=== PATIENT | male | born 1990 | race Caucasian/White ===

== ENCOUNTER 2019-07-28 14:44 | Emergency (ER) | payer MEDICAID, SELFPAY ==
[2019-07-28 14:45] VITALS: BP 151/92; PULSE 87; RESP 18; TEMP 36.6; O2SAT 99; BMI 32.0
--- NOTE | 2019-07-28 14:58 | ED.DCSUM_ITS ---
History of Present Illness Chief Complaint: Cold Sx Informant: Patient Onset: Days Context: Gradual Onset Timing: Intermittent Current Severity: Moderate Maximum Severity: Moderate Narrative: The patient presents to the emergency department cough and shortness of breath. Patient has a history of hereditary angioedema. He is also has a history of asthma. He states he has had worsening cough and some wheezing. He describes some low-grade fever. He states that he did take some antibiotics he had leftover and took steroids today. He is also been taking multiple o [id number] remedies with little improvement. He has been using his inhaler and it does seem to help his symptoms. He has not taken his temperature but felt like he is a low-grade fever. He denies any other systemic symptoms. Prior similar symptoms: No Recent Illness/Hospitalization: No Past Medical History - Allergies and Home Meds Allergies/Adverse Reactions: Allergies amoxicillin [From Augmentin] Allergy (Verified 07/28/19 14:47) Hives cefprozil [From Cefzil] Allergy (Verified 07/28/19 14:47) Hives clavulanic acid [From Augmentin] Allergy (Verified 07/28/19 14:47) Hives NSAIDS (Non-Steroidal Anti-Inflamma Adverse Reaction (Verified 07/28/19 14:47) Other THEY MAKE MY STOMACH SWELL Primary Care Physician: NOT,DEFINED [NON-STAFF] - Prior records reviewed: Yes Past Medical History: - Surgical History: no surgical history Smoking Status: Current every day smoker Review of Systems General: Denies: Chills, Fever, Sweats Eyes: Denies: Visual changes - bilaterally, Diplopia ENT: Denies: Rhinorrhea, Sore throat Cardiovascular: Denies: Chest pain, Palpitations Respiratory: Reports: Cough, Sputum. Denies: Dyspnea, Dyspnea on exertion Gastrointestinal: Denies: Abdominal pain, Nausea, Vomiting, Diarrhea, Melena, Hematochezia Genitourinary: Denies: Dysuria, Hematuria, Frequency Musculoskeletal: Denies: Back pain, Extremity Pain Skin: Denies: Rash, Wounds Neurological: Denies: Headache, Weakness, Numbness Physical Exam Vital Signs/Narrative: Vital Signs Temp Pulse Resp BP Pulse Ox 07/28/19 14:45 97.8 F 87 18 151/92 H 99 Inital Vital Signs reviewed: Yes General: Well nourished, Well developed, No Acute Distress Head: Normocephalic, Atraumatic Eyes: Perrl, EOMI ENT: Moist mucous membranes, No rhinorrhea Neck: Supple, Nontender Cardiovascular: Regular rate, Regular rhythm, No murmurs Respiratory: No distress, Chest nontender, Wheezing, Decreased Air Movement Abdomen: Soft, Nontender, Nondistended, Normal bowel sounds Back: Nontender, Normal Inspection Extremities: Nontender, No edema Skin: Normal color, No rash Neurological: Alert, Oriented x3, Cranial nerves II-XII grossly intact, Normal Strength, Normal Sensation Psychological: Normal affect, Normal Mood Diagnostic/Tx/Re-eval Chest X-Ray - ED: 2 View, Read by ED Physician, Read by Radiologist, Normal, Heart, Lungs, No Infiltrates - Medical Decision Making The patient presents with cough and shortness of breath. He does have wheezing in all [place]. He was given nebulized breathing treatments improvement. He had already taken prednisone. The x-ray shows no evidence of focal infiltrate. I am going to treat the patient for infectious bronchitis given his symptoms. He also be kept on prednisone. At this point, I do feel it is safe for outpatient therapy. The patient will be discharged home. Impression 1. Acute bronchitis ED Disposition - Plan for ED Patient: Instructions: BRONCHITIS, Antiobiotic Treatment (Adult) Prescriptions: Prednisone [Deltasone] 60 mg PO DAILY #15 tab Prescription Printed Famotidine [Pepcid] 20 mg PO BID #28 tab Prescription Printed Azithromycin [Zithromax Z-Moises] 250 mg PO UD #1 box Prescription Printed Referrals: NOT,DEFINED [NON-STAFF] -
--- NOTE | 2019-07-28 15:00 | RAD_ITS ---
STUDY: X-RAY CHEST REASON FOR EXAM: Male, 29 years old. Cough and shortness of breath. Sore throat. TECHNIQUE: PA and lateral views of the chest. COMPARISON: None. FINDINGS: The lungs are clear and expanded. Scattered calcified granulomas. There is no demonstrated pleural abnormality. Normal size heart. Normal mediastinum and zi. Normal visualized pulmonary arteries. Normal visualized aortic arch and descending thoracic aorta. Normal visualized thoracic spine. Normal visualized ribs, clavicles, and shoulders. There is no demonstrated abnormality of the visualized soft tissue structures of the upper abdomen. RAD/Chest PA and Lateral IMPRESSION: Normal x-ray examination of the chest. Electronically Signed: Melquiades Vega, at 15:21 EDT , Service support ,
[2019-07-28] MEDS: Ipratropium/Albuterol Sulfate 3 ML AMPUL.NEB INHALATION (15:07)
[2019-07-28] MEDS: Albuterol 2.5 MG/3 ML VIAL.NEB. INHALATION ×3 (15:08→15:20)
[2019-07-28 15:10] VITALS: PULSE 72; RESP 20
== END 2019-07-28 15:49 | disposition home or self-care (01) ==
LOC: ED 15:14
PROVIDERS: Emergency Provider Emergency Medicine
DX: J20.9 Acute bronchitis, unspecified (principal); J45.909 Unspecified asthma, uncomplicated; F17.200 Nicotine dependence, unspecified, uncomplicated; Z79.899 Other long term (current) drug therapy; Z88.0 Allergy status to penicillin; Z88.6 Allergy status to analgesic agent
CPT/HCPCS: 71046; 94640; 99282

== ENCOUNTER 2021-03-14 13:21 | Outpatient (RCR) | payer MEDICAID, SELFPAY | END 2021-04-30 23:59 | LOC: IMMUN 13:21 | PROVIDERS: Referring Provider Family Medicine; Visit Provider Family Medicine | DX: Z23 Encounter for immunization (principal) | CPT/HCPCS: 0001A; 0002A; 91300 ==

== ENCOUNTER 2021-03-24 05:42 | Emergency (ER) | payer MEDICAID, SELFPAY ==
[2021-03-24 05:43] VITALS: BP 132/90; PULSE 80; RESP 16; TEMP 36.1; O2SAT 100; BMI 28.3
--- NOTE | 2021-03-24 05:54 | EDS_ITS ---
HPI HPI - GI History of Present Illness Chief Complaint: Abd Pain Informant: patient Abdominal Pain/Flank Pain Onset: Yesterday and Hours Context: Gradual Onset Timing: Continuous Quality: Burning and Sharp Location: Epigastric Current Severity: Mild Maximum Severity: Moderate Worsened by: Nothing Nausea/Vomiting/Emesis GI Symptom: Positive for Nausea and Vomiting Onset: Today and Yesterday Quality: Positive for Nonbilious; Negative for Blood streaks, Coffee ground and Hematemesis Severity: Mild Diarrhea/Melena/Hematochezia GI Symptom: Negative for Diarrhea, Melena and Hematochezia Associated Symptoms Associated Symptoms: Negative for Dysuria and Frequency Narrative Narrative: 31-year-old male history of anxiety,, familial angioedema, hypertension, ADHD and as a child he states he did have peptic ulcer disease diagnosed with upper endoscopy. Patient states that 9 PM Thursday night he started having epigastric abdominal pain that about 20 minutes later started having nausea vomiting. No hematemesis. No melena. No diarrhea. No fever. No recent weight loss. No abdominal trauma. He is never had any abdominal surgeries. Prior similar symptoms: No Recent Illness/Hospitalization: No PFSH PFSH Medical History ADHD Angio-edema Anxiety HTN (hypertension) Stomach ulcer Home Medications alprazolam 1 mg PO BID PRN PRN 07/28/19 [History Last Taken Unknown] dextroamphetamine-amphetamine 20 mg PO DAILY 07/28/19 [History Last Taken Unknown] famotidine 20 mg PO BID #28 tab 07/28/19 [Rx Last Taken Unknown] prednisone 60 mg PO DAILY #15 tab 07/28/19 [Rx Last Taken Unknown] pantoprazole [Protonix] 40 mg PO DAILY #30 tab 03/24/21 [Rx Last Taken Unknown] Allergy/AdvReac Type Severity Reaction Status Date / Time amoxicillin [From Augmentin] Allergy Hives Verified 03/24/21 05:48 cefprozil [From Cefzil] Allergy Hives Verified 03/24/21 05:48 clavulanic acid Allergy Hives Verified 03/24/21 05:48 [From Augmentin] NSAIDS (Non-Steroidal AdvReac Other Verified 03/24/21 05:48 Anti-Inflamma Social History Smoking Status: Current every day smoker ROS ROS ED ROS Narrative States he is recently been well until onset of his symptoms at 9 PM last night. Review of Systems ROS Unobtainable: Denies due to encephalopathy Constitutional Constitutional ED: Denies fever(s) ENT ENT ED: Denies sore throat Cardiovascular Cardiovascular: Denies chest pain Respiratory/Chest Respiratory/Chest: Denies cough or dyspnea Gastrointestinal Gastrointestinal: Reports abdominal pain, nausea and vomiting; Denies cons tipation, diarrhea or melena Genitourinary Genitourinary ED: Denies dysuria, hematuria or urinary frequency Musculoskeletal Musculoskeletal: Denies myalgias Integumentary Denies rash Neurologic Neurologic: Denies headache(s) Psychiatric Psychiatric: Denies depression Endocrine Endocrinology: Denies polyuria Hematologic/Lymphatic Hematologic/Lymphatic: Denies easy bruising Allergic/Immunologic Allergic/Immunologic ED: Denies urticaria EXAM Physical Exam Narrative Exam Narrative: Young male complaining epigastric pain. Vital signs are stable and he is afebrile. He does not look septic or toxic. He does not look severely dehydrated. He is anxious. HEENT exam mildly dry. Otherwise unremarkable. Neck nontender. Lungs are clear equal symmetrical bilaterally. Heart regular rhythm no murmur. Rate about 80. Abdomen soft. Nondistended. Normal bowel sounds. No peritoneal signs. He is mildly tender in epigastric region. Both the right upper and right lower quadrants are completely nontender. There is no signs of obstruction. No obvious mass or hernia. Patient moving all 4 extremities. Skin unremarkable. No edema. Neurologically is awake alert with no focal motor deficits. Const Vital Signs: 03/24/21 05:43 Temperature 97.0 F L Temperature Source Temporal Pulse Rate 80 Respiratory Rate 16 Blood Pressure 132/90 H Blood Pressure Mean 104 Pulse Ox 100 Oxygen Delivery Method Room Air Positive well developed General Appearance ED: well developed HEENT Reports dry mucous membranes normocephalic and atraumatic Mouth ED: Yes dry mucous membranes Mouth: dry mucous membranes Eyes PERRL and EOMs intact bilaterally Neck no lymphadenopathy, supple and no JVD Resp normal respiratory effort and clear to auscultation bilaterally Cardio regular rate, regular rhythm and no murmurs GI non-distended and no masses Inspection: Negative for abdominal distention Auscultation: normoactive bowel sounds; Negative for hyperactive bowel sounds or hypoactive bowel sounds Palpation: soft and tender; Negative for hepatomegaly, splenomegaly, mass, pulsatile mass or rebound tenderness present Back/Spine no CVA tenderness Extremity full ROM General Extremety ED: Negative for edema or tenderness General Extremity: Negative for edema Neuro moves all extremities Sensorium / Orientation: alert, oriented to person, oriented to place and oriented to time Psych Mood & Affect: anxious Skin Rashes: no rashes MDM MDM MDM Narrative Medical decision making narrative: 31-year-old male with nausea vomiting and epigastric abdominal pain beginning around 9 PM last night. He will be treated with IV morphine for pain, IV Zofran for nausea and IV fluids for dehydration. Screening labs are being obtained. Differential would include viral syndrome, gastritis, ulcer, pancreatitis, gallbladder disease versus other etiologies. Lab Data Attestation: I reviewed the patient's lab results. Labs: Laboratory Results - last 24 hr 03/24/21 03/24/21 05:45 05:45 WBC 19.4 H RBC 5.47 Hgb 16.4 Hct 48.3 MCV 88.3 MCH 30.0 MCHC 34.0 RDW Std Deviation 40.5 RDW Coeff of Faustina 12.2 Plt Count 577 H MPV 9.7 Immature Gran % (Auto) 0.600 Neut % (Auto) 84.8 H Lymph % (Auto) 9.2 L [place] % (Auto) 4.8 Eos % (Auto) 0.3 Baso % (Auto) 0.3 Absolute Neuts (auto) 16.4 H Absolute Lymphs (auto) 1.79 Nucleated RBC % 0 Sodium 135 L Potassium 4.1 Chloride 101 Carbon Dioxide 28.0 Anion Gap 6 BUN 14 Creatinine 0.90 Estim Creat Clear Calc 151.25 Est GFR (MDRD) Af Amer 128 Est GFR (MDRD) Non-Af 105 BUN/Creatinine Ratio 15.6 Glucose 123 H Calcium 10.0 Total Bilirubin 0.70 AST 27 ALT 55 Alkaline Phosphatase 131 H Total Protein 8.3 H Albumin 4.3 Globulin 4.0 Albumin/Globulin Ratio 1.1 Lipase 58 L CBC shows elevated white count at 19.4. Normal hemoglobin is 16. No bands. Electrolytes unremarkable. Normal creatinine and gap. Liver enzymes are unremarkable. Lipase is 58. Due to the elevated white count a CAT scan of the abdomen pelvis with IV contrast has been ordered. Awaiting patient's CAT scan formal read. Patient is being treated with a second dose of IV morphine, Zofran and p.o. Protonix, He is improving at this time. Patient's CAT scan was read by the radiologist and is consistent with severe gastritis and duodenitis. Patient will receive additional medications and be discharged to home as long as doing well. Radiography Diagnostic Testing: Radiology Impression Abdomen/Pelvis CT 03/24/21 06:16 IMPRESSION: Severe gastritis and duodenitis. Electronically Signed: Maciel Plata MD at 7:33 EDT Tel , Service support , Discharge Plan Triage Chief Complaint: Abd Pain ED Provider: Jd Patrick Dx/Rx/DC Orders Clinical Impression: Gastritis and duodenitis Instructions: ED Gastritis (Adult) Prescriptions: New pantoprazole [Protonix] 40 mg tablet,delayed release (DR/EC) 40 mg PO DAILY Qty: 30 RF: 0 No Action alprazolam 1 MG tablet 1 mg PO BID PRN PRN (Reason: Anxiety) RF: 0 dextroamphetamine-amphetamine 20 MG capsule,extended release 24hr 20 mg PO DAILY RF: 0 prednisone 20 MG tablet 60 mg PO DAILY Qty: 15 RF: 0 famotidine 20 MG tablet 20 mg PO BID Qty: 28 RF: 0 Primary Care Provider: Care Physician,No Primary Referrals: Jonathon Gupta MD [STAFF PHYSICIAN] - 1 Week Care Physician,No Primary [Primary Care Provider] - Activity Restrictions/Additional Instructions: Protonix daily. I would start with 2 pills once a day and then as you are improving only 1 pill a day. Avoid alcohol because it will irritate your stomach. [place] diet and increase slowly. Zofran as needed for nausea. Follow-up with a local physician to ensure you are improving. Return emergency department if increasing pain, fever, vomiting blood or black or bloody stool. Disposition Disposition: Home, self care
[2021-03-24] MEDS: 0.9% Normal Saline 1,000 ML 1000 ML IV (05:57)
[2021-03-24] MEDS: Ondansetron 4 MG/2 ML Vial IV ×2 (05:58→07:37)
[2021-03-24] MEDS: morphine 8 MG/ML Syringe IV (05:59)
[2021-03-24 06:06] LABS: Absolute Lymphocyte Count 1.79 X10^3/uL (0.83-4.51); Absolute Neutrophil Count 16.4 X10^3/uL (2.0-7.7); Basophil# 0.05 X10^3/uL; Basophil% 0.3 % (0-1); Eosinophil# 0.05 X10^3/uL; Eosinophils% 0.3 % (0-5); Hematocrit 48.3 % (40-54); Hemoglobin 16.4 g/dL (13.0-16.5); Lymphocyte # 1.79 X10^3/ul (0.83-4.51); Lymphocyte % 9.2 % (19-41); Mean Corpuscular Volume 88.3 fL (80-94); Mean Platelet Vol. 9.7 fl (6.2-12.0); Monocyte# 0.92 X10^3/uL; Monocyte% 4.8 % (0-10); NRBC Flagged by Analyzer 0 % (0-5); Neutrophil # 16.44 X10^3/uL (2.7-7.7); Neutrophil % 84.8 % (47-70); Platelet Count 577 K/mm3 (150-450); RBC Distribution Width CV 12.2 % (11.6-14.6); RBC Distribution Width SD 40.5 fl (35.1-43.9); Red Blood Count 5.47 M/mm3 (4.6-6.2); White Blood Count 19.4 K/mm3 (4.4-11.0)
--- NOTE | 2021-03-24 06:16 | CT_ITS ---
STUDY: CT ABDOMEN AND PELVIS WITH CONTRAST REASON FOR EXAM: Male, 31 years old. epigastric abd pain RADIATION DOSAGE (If Supplied By Facility): CTDIvol = ( 17.60 ) mGy, DLP = ( 1243.55 ) mGycm TECHNIQUE: Transaxial images were obtained from the dome of the diaphragm to the symphysis pubis without oral contrast. IV 100mL Isovue-370 was administered. Sagittal and coronal images were reconstructed. Individualized dose optimization techniques were used for this CT. COMPARISON: None. FINDINGS: The visualized lung bases are unremarkable. The visualized portions of the heart are within normal limits. Normal liver. Normal gallbladder and extrahepatic biliary system. Normal spleen. Normal pancreas. Normal bilateral adrenal glands. Normal right kidney. Normal left kidney. Extensive wall thickening with surrounding fat stranding and fluid of the antrum of the stomach and the entire duodenum consistent with gastritis and duodenitis. Fluid extends laterally into the right anterior pararenal space and there is a small amount of free fluid in the pelvis. No loculated fluid collection to suggest abscess. No pneumoperitoneum to suggest perforation. Normal small intestine. Normal colon. The appendix is visualized and appears normal. Normal abdominal aorta. Normal inferior vena cava. Normal retroperitoneum. Normal urinary bladder. Normal abdominal wall. Normal osseous structures. CT/Abdomen/Pelvis W IV Cont ONLY IMPRESSION: Severe gastritis and duodenitis. Electronically Signed: Maciel Plata MD at 7:33 EDT Tel , Service support ,
[2021-03-24 06:19] LABS: ALB/GLOB Ratio 1.1 RATIO (0.9-2.4); AST(SGOT) 27 U/L (15-37); Alanine Aminotransfer ALT/SGPT 55 U/L (16-61); Albumin, Serum 4.3 g/dL (3.2-5.0); Alkaline Phosphatase 131 U/L (45-117); Anion Gap 6 (5-15); BUN 14 mg/dL (7-18); BUN/Creat Ratio 15.6 RATIO (10-20); Chloride 101 mmol/L (98-107); EST Glomerular Filtration Rate 105 mL/min (>60); Est Glom Filt Rate - Afr Amer 128 mL/min (>60); Estimated Creatinine Clearance 151.25 ml/min; Glucose 123 mg/dL (74-106); Lipase 58 U/L (73-393); Potassium 4.1 mmol/L (3.5-5.1); Protein, Total 8.3 g/dL (6.4-8.2); Sodium Level 135 mmol/L (136-145)
[2021-03-24] MEDS: morphine 8 MG/ML Syringe 6 MG IV (07:37)
[2021-03-24] MEDS: Pantoprazole Sodium 40 MG Tablet PO (07:38)
[2021-03-24 07:41] VITALS: BP 129/86; PULSE 77; RESP 16; O2SAT 99
== END 2021-03-24 08:29 | disposition home or self-care (01) ==
PROVIDERS: Emergency Provider Emergency Medicine
DX: K29.70 Gastritis, unspecified, without bleeding (principal); K29.80 Duodenitis without bleeding; I10 Essential (primary) hypertension; F17.200 Nicotine dependence, unspecified, uncomplicated; Z79.899 Other long term (current) drug therapy
CPT/HCPCS: 74177; 80053; 83690; 85025; 96361; 96374; 96375; 96376; 99284; J7030; Q9967; A4216; J2405

== ENCOUNTER 2021-12-24 07:21 | Emergency (ER) | payer MEDICAID, SELFPAY ==
[2021-12-24 07:22] VITALS: BP 135/94; PULSE 90; RESP 20; TEMP 36.6; O2SAT 100; BMI 28.4
[2021-12-24 07:51] VITALS: BP 135/94; PULSE 90; RESP 20; TEMP 36.6; O2SAT 100
--- NOTE | 2021-12-24 07:55 | CT_ITS ---
STUDY: CT ABDOMEN AND PELVIS WITH CONTRAST REASON FOR EXAM: Male, 31 years old. Epigastric abd pain -- IV PO Contrast. History of ulcers. RADIATION DOSAGE (If Supplied By Facility): CTDIvol = ( 14.77 ) mGy, DLP = ( 129.77 ) mGycm TECHNIQUE: Transaxial images were obtained from the dome of the diaphragm to the symphysis pubis with oral contrast. Oral and amp; IV Gastrografin and amp; 100mL Isovue-300 was administered. Sagittal and coronal images were reconstructed. Individualized dose optimization techniques were used for this CT. COMPARISON: Comparison is made with prior study dated 03/24/2021. FINDINGS: The visualized lung bases are unremarkable. The visualized portions of the heart are within normal limits. Normal liver. Normal gallbladder and extrahepatic biliary system. Normal spleen. Normal pancreas. Normal bilateral adrenal glands. Normal right kidney. Normal left kidney. There is gas and extension with oral contrast and residual food particles. There is diffuse mucosal and mural thickening of the second, third and fourth portions of the duodenum extending into the proximal jejunum. Increased markings are seen in the surrounding mesenteric fat as well as small amount of free fluid in the anterior pararenal space. Normal colon. The appendix is visualized and appears normal. Normal abdominal aorta. Normal inferior vena cava. Normal retroperitoneum. Normal urinary bladder. Small amount of free fluid is seen within the pelvis. Normal abdominal wall. Normal osseous structures. CT/Abdomen/Pelvis WITH Contrast IMPRESSION: Once again, there is evidence of extensive thickening of the wall of the distal stomach as well as the entire portion of the duodenum with the increased markings in the surrounding peritoneal fat as well as a small amount of free fluid in the right anterior pararenal space. There is distention of the stomach with fluid and residual food particles. Small amount of fluid is seen in the pelvis. There has been essentially no change. Electronically Signed: Melquiades Vega MD at 10:10 EST ,
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
[2021-12-24] MEDS: MethylPREDNISolone 125 MG/2 ML Vial 60 MG IV (08:05)
[2021-12-24] MEDS: 0.9% Normal Saline 1,000 ML 1000 ML IV (08:05)
[2021-12-24] MEDS: Morphine 4 MG/ML Syringe IV ×2 (08:05→11:34)
[2021-12-24] MEDS: Ondansetron 4 MG/2 ML Vial IV (08:05)
[2021-12-24 08:07] LABS: Absolute Lymphocyte Count 2.28 X10^3/uL (0.83-4.51); Absolute Neutrophil Count 11.1 X10^3/uL (2.0-7.7); Basophil# 0.04 X10^3/uL; Basophil% 0.3 % (0-1); Eosinophil# 0.54 X10^3/uL; Eosinophils% 3.6 % (0-5); Hematocrit 47.8 % (40-54); Hemoglobin 16.4 g/dL (13.0-16.5); Lymphocyte # 2.28 X10^3/ul (0.83-4.51); Lymphocyte % 15.2 % (19-41); Mean Corp Hgb Conc 34.3 g/dL (32-36); Mean Corpuscular Hgb 30.3 pg (27.0-32.0); Mean Corpuscular Volume 88.4 fL (80-94); Mean Platelet Vol. 9.6 fl (6.2-12.0); Monocyte% 5.3 % (0-10); NRBC Flagged by Analyzer 0 % (0-5); Neutrophil # 11.12 X10^3/uL (2.7-7.7); Neutrophil % 74.4 % (47-70); Platelet Count 464 K/mm3 (150-450); RBC Distribution Width CV 12.3 % (11.6-14.6); RBC Distribution Width SD 39.8 fl (35.1-43.9); Red Blood Count 5.41 M/mm3 (4.6-6.2)
[2021-12-24 08:23] LABS: ALB/GLOB Ratio 1.1 RATIO (0.9-2.4); AST(SGOT) 19 U/L (15-37); Alanine Aminotransfer ALT/SGPT 34 U/L (16-61); Alkaline Phosphatase 100 U/L (45-117); Anion Gap 5 (5-15); BUN 11 mg/dL (7-18); BUN/Creat Ratio 12.2 RATIO (10-20); Calcium,Total 9.8 mg/dL (8.5-10.1); Chloride 104 mmol/L (98-107); EST Glomerular Filtration Rate 105 mL/min (>60); Est Glom Filt Rate - Afr Amer 127 mL/min (>60); Estimated Creatinine Clearance 151.25 ml/min; Globulin 3.7 g/dL (2.2-4.2); Glucose 123 mg/dL (74-106); Lipase 39 U/L (73-393); Potassium 4.3 mmol/L (3.5-5.1); Protein, Total 7.7 g/dL (6.4-8.2); Sodium Level 138 mmol/L (136-145)
[2021-12-24] MEDS: Famotidine 200 MG/20 ML MDV 20 MG in 0.9% Normal Saline (Pres. free 8 ML 300 MG IV (08:37)
[2021-12-24 08:38] VITALS: BP 138/74; PULSE 82; RESP 14; TEMP 36.4; O2SAT 97
[2021-12-24] MEDS: ECALLANTIDE 30 MG SC (11:51)
[2021-12-24 13:11] VITALS: BP 138/69; PULSE 82; RESP 16; O2SAT 97
[2021-12-24 14:22] VITALS: BP 141/67; PULSE 84; RESP 17; O2SAT 99
== END 2021-12-24 14:22 | disposition home or self-care (01) ==
PROVIDERS: Emergency Provider Emergency Medicine; Visit Provider Emergency Medicine
DX: D84.1 Defects in the complement system (principal); R11.2 Nausea with vomiting, unspecified; I10 Essential (primary) hypertension; F41.9 Anxiety disorder, unspecified; F17.210 Nicotine dependence, cigarettes, uncomplicated; Z79.899 Other long term (current) drug therapy
CPT/HCPCS: 74177; 80053; 83690; 85025; 96365; 96372; 96375; 96376; 99284; J7030; Q9967; A4216; J1290; J2405; J3490

== ENCOUNTER 2022-07-27 21:20 | Emergency (ER) | payer MEDICAID, SELFPAY ==
[2022-07-27 21:21] VITALS: BP 173/110; PULSE 114; RESP 18; TEMP 36.4; O2SAT 99; BMI 27.2
--- NOTE | 2022-07-27 22:09 | US_ITS ---
STUDY: SCROTUM ULTRASOUND REASON FOR EXAM: Male, 32 years old. edema TECHNIQUE: Ultrasound evaluation of the scrotum was performed with color Doppler and static tucker-scale imaging. COMPARISON: None. FINDINGS: RIGHT TESTICLE INTRATESTICULAR: There is a normal size of the right testicle. The right testicle measures 4.3 x 3.0 x 2.8 cm. There is a homogenous echotexture. There is normal arterial and normal venous vascularity. There is no demonstrated right testicular mass or cyst. EXTRATESTICULAR: The epididymis is normal in size. The epididymis head measures 0.8 x 1.5 x 1.7 cm. There is normal vascularity of the epididymis. There is no demonstrated epididymal cystic structure. There is no demonstrated hydrocele. There is no demonstrated varicocele. There is no demonstrated extratesticular mass or cyst. LEFT TESTICLE INTRATESTICULAR: There is a normal size of the left testicle. The left testicle measures 4.5 x 3.0 x 2.8 cm. There is a homogenous echotexture. There is normal arterial and normal venous vascularity. There is no demonstrated left testicular mass or cyst. EXTRATESTICULAR: The epididymis is normal in size. The epididymis head measures 0.7 x 0.8 x 1.5 cm. There is normal vascularity of the epididymis. There is no demonstrated epididymal cystic structure. There is no demonstrated hydrocele. There is no demonstrated varicocele. There is no demonstrated extratesticular mass or cyst. US/Testicular with Arterial Flow IMPRESSION: Normal bilateral testicles. Electronically Signed: Maciel Plata MD at 23:10 EDT ,
--- NOTE | 2022-07-27 22:10 | EDS_ITS ---
HPI History of Present Illness Chief Complaint: Male Pain/Injury Informant: patient Pain Onset: Today Context: Gradual Onset Timing: Continuous Worsened by: Nothing Relieved by: Nothing Appearance Genital Edema: Yes Penile Discharge Genital Discharge Amount: None Narrative Narrative: Patient presents with history of pain and swelling that began today. Patient states he has a history of hereditary angioedema but this usually occurs in his abdomen. Patient states his testicles and scrotum began to swell today. Patient describes the pain as aching. Patient states the pain radiates up into his lower abdomen and back. Patient states nothing makes it better and nothing makes it worse. Patient denies any urethral discharge. Patient is also concerned that this could be from an STD. Patient denies any dysuria. Patient denies any frequency. [facility] Medical History ADHD Angio-edema Anxiety HTN (hypertension) Stomach ulcer Home Medications alprazolam 1 mg tablet 1 mg PO BID PRN PRN Anxiety 07/28/19 [History Last Taken Unknown] dextroamphetamine-amphetamine ER 20 mg 24hr capsule,extend release 20 mg PO DAILY 07/28/19 [History Last Taken Unknown] azithromycin 500 mg tablet 500 mg PO DAILY 7 days #7 tabs 12/24/21 [Rx Last Taken Unknown] famotidine 20 mg tablet (Pepcid) 20 mg PO BID #20 tabs 12/24/21 [Rx Last Taken Unknown] hydrocodone-acetaminophen 5-325mg 5mg-325mg 1 tab PO Q8H PRN pain 3 days #10 tabs 12/24/21 [Rx Last Taken Unknown] metoclopramide HCl 5 mg tablet (Reglan) 5 mg PO DAILY PRN nausea and vomiting #20 tabs 12/24/21 [Rx Last Taken Unknown] ondansetron 4 mg disintegrating tablet 4 mg PO Q6H PRN nausea and vomiting #14 tabs 12/24/21 [Rx Last Taken Unknown] prednisone 20 mg tablet 40 mg PO DAILY #10 tabs 12/24/21 [Rx Last Taken Unknown] prednisone 20 mg tablet 60 mg PO DAILY #15 TABLETS 07/28/22 [Rx Last Taken Unknown] tramadol 50 mg tablet 50 mg PO Q4H PRN PRN Pain 2 days #10 tabs 07/28/22 [Rx Last Taken Unknown] Allergy/AdvReac Type Severity Reaction Status Date / Time amoxicillin [From Augmentin] Allergy Hives Verified 07/27/22 21:24 cefprozil [From Cefzil] Allergy Hives Verified 07/27/22 21:24 clavulanic acid Allergy Hives Verified 07/27/22 21:24 [From Augmentin] NSAIDS (Non-Steroidal AdvReac Other Verified 07/27/22 21:24 Anti-Inflamma Surgical History no surgical history no surgical history Social History Smoking Status: Current every day smoker tobacco type: cigarettes ROS ROS ED Constitutional Constitutional ED: Denies chills or fever(s) Eyes Eyes: Denies blurry vision or change in vision ENT ENT ED: Denies rhinorrhea or sore throat Cardiovascular Cardiovascular: Denies chest pain or palpitations Respiratory/Chest Respiratory/Chest: Reports cough; Denies dyspnea Gastrointestinal Gastrointestinal: Denies nausea or vomiting Genitourinary Genitourinary ED: Denies dysuria or hematuria Musculoskeletal Musculoskeletal: Denies back pain or neck pain Integumentary Reports rash; Denies abscess Neurologic Neurologic: Denies headache(s) or weakness Allergic/Immunologic Allergic/Immunologic ED: Denies mouth swelling or urticaria EXAM Physical Exam Const Vital Signs: 07/27/22 21:21 Temperature 97.5 F L Temperature Source Temporal Pulse Rate 114 H Respiratory Rate 18 Blood Pressure 173/110 H Blood Pressure Mean 131 Pulse Ox 99 Oxygen Delivery Method Room Air Positive well nourished and well developed General Appearance ED: well developed and NAD HEENT Reports moist mucous membranes Neck supple and no JVD Resp normal respiratory effort and clear to auscultation bilaterally Cardio regular rate and regular rhythm GI normal to inspection, nondistended, normoactive bowel sounds and non-tender Palpation: soft Narrative: There is edema of the testicles and scrotum. There is no urethral discharge or drainage. There are no external lesions noted. Groin / Perineum Exam: edema Extremity normal to inspection General Extremety ED: Negative for edema or tenderness General Extremity: Negative for edema Neuro oriented x3, CN's II-XII intact bilaterally and no sensory deficits noted Sensorium / Orientation: alert Motor Exam: strength 5/5 throughout Psych mental status grossly normal MDM MDM MDM Narrative Medical decision making narrative: Patient was given a dose of morphine here. Patient was given a dose of Solu- Medrol. CBC shows a slight leukocytosis of 11.6. This was improved from previous results. Urinalysis does not show any evidence of urinary tract infection or hematuria. GC and Chlamydia PCR was negative. Ultrasound of the testicles was obtained. There is no evidence of torsion or mass. This was interpreted by the radiologist and reviewed by myself. Patient was advised of his findings. Patient was advised that this is most likely from angioedema. Patient was given a prescription for prednisone. Patient was given a prescription for a short course of tramadol. Patient was instructed to follow- up with his primary care physician in 5 to 7 days. Patient understood and was agreeable with the plan. All questions were answered. Lab Data Attestation: I reviewed the patient's lab results. Labs: Laboratory Results - last 24 hr 07/27/22 07/27/22 07/27/22 22:12 22:12 22:20 WBC 11.6 H RBC 4.90 Hgb 15.0 Hct 43.7 MCV 89.2 MCH 30.6 MCHC 34.3 RDW Std Deviation 42.7 RDW Coeff of Faustina 13.0 Plt Count 428 MPV 9.0 Immature Gran % (Auto) 0.300 Neut % (Auto) 71.4 H Lymph % (Auto) 21.0 [place] % (Auto) 5.6 Eos % (Auto) 1.0 Baso % (Auto) 0.7 Absolute Neuts (auto) 8.3 H Absolute Lymphs (auto) 2.43 Nucleated RBC % 0 Urine Color Yellow Urine Clarity Sl. Cloudy Urine pH 6.0 Ur Specific [place] 1.020 Urine Protein Negative Urine Glucose (UA) Normal Urine Ketones 5 H Urine Occult Blood 10 H Urine Nitrite Negative Urine Bilirubin Negative Urine Urobilinogen 1 H Ur Leukocyte Esterase Negative Urine RBC 0-5 SEEN Urine WBC 0-5 SEEN Ur Squamous Epith Cells 0 SEEN Urine Bacteria RARE Urine Mucus 1+ Chlam trachomat DNA PCR Negative N.gonorrhoeae DNA (PCR) Negative Radiography Diagnostic Testing: Clinical Impression(s) from Imaging Studies Testicular Ultrasound 07/27/22 22:09 IMPRESSION: Normal bilateral testicles. Electronically Signed: Maciel Plata MD at 23:10 EDT , Discharge Plan Triage Chief Complaint: Male Pain/Injury ED Provider: Glen Jaeger Dx/Rx/DC Orders Clinical Impression: Angio-edema, Pain in scrotum or testicle Instructions: ED Angioedema Prescriptions: New prednisone 20 mg tablet 60 mg PO DAILY Qty: 15 0RF tramadol 50 mg tablet 50 mg PO Q4H PRN PRN (Reason: Pain) 2 Days Qty: 10 0RF No Action alprazolam 1 MG tablet 1 mg PO BID PRN PRN (Reason: Anxiety) dextroamphetamine-amphetamine 20 MG capsule,extended release 24hr 20 mg PO DAILY Label Comments: TAKE 1 CAPSULE BY MOUTH ONCE DAILY IN THE MORNING azithromycin 500 mg tablet 500 mg PO DAILY 7 Days Qty: 7 0RF metoclopramide HCl [Reglan] 5 mg tablet 5 mg PO DAILY PRN (Reason: nausea and vomiting) Qty: 20 0RF prednisone 20 mg tablet 40 mg PO DAILY Qty: 10 0RF hydrocodone-acetaminophen 5-325 mg tablet 1 tab PO Q8H PRN (Reason: pain) 3 Days Qty: 10 0RF ondansetron 4 mg tablet,disintegrating 4 mg PO Q6H PRN (Reason: nausea and vomiting) Qty: 14 0RF famotidine [Pepcid] 20 mg tablet 20 mg PO BID Qty: 20 0RF Primary Care Provider: Care Physician,No Primary Referrals: Tom Layton MD [Med Staff - Active Staff] - 5-7 Days Care Physician,No Primary [Primary Care Provider] - Disposition Disposition: Home, Self Care
[2022-07-27 22:20] LABS: Color, Urine Yellow (Yellow); Glucose, Dipstick Normal (Normal); Ketone-Dipstick 5 mg/dl (Negative); Leukocyte Esterase-Dipstick Negative /ul (Negative); Nitrite-Dipstick Negative (Negative); Occult Blood-Urine 10 /ul (Negative); Protein-Dipstick Negative (Negative); Squamous Epithelial Cells - UA 0 SEEN /hpf (0-5); Urine Bilirubin Dipstick Negative (Negative); Urine Clarity Sl. Cloudy (Clear); Urine Urobilinogen 1 mg/dl (Normal)
[2022-07-27 22:27] LABS: Absolute Lymphocyte Count 2.43 X10^3/uL (0.83-4.51); Absolute Neutrophil Count 8.3 X10^3/uL (2.0-7.7); Basophil# 0.08 X10^3/uL; Basophil% 0.7 % (0-1); Eosinophil# 0.11 X10^3/uL; Hematocrit 43.7 % (40-54); Lymphocyte # 2.43 X10^3/ul (0.83-4.51); Mean Corp Hgb Conc 34.3 g/dL (32-36); Mean Corpuscular Hgb 30.6 pg (27.0-32.0); Mean Corpuscular Volume 89.2 fL (80-94); Monocyte# 0.65 X10^3/uL; Monocyte% 5.6 % (0-10); NRBC Flagged by Analyzer 0 % (0-5); Neutrophil # 8.25 X10^3/uL (2.7-7.7); Neutrophil % 71.4 % (47-70); Platelet Count 428 K/mm3 (150-450); RBC Distribution Width SD 42.7 fl (35.1-43.9); White Blood Count 11.6 K/mm3 (4.4-11.0)
[2022-07-27 22:29] LABS: Bacteria RARE /hpf (None Seen); Mucous, Urine 1+ /hpf (<or=2+); Red Blood Cells-Urine 0-5 SEEN /hpf (0-5); White Blood Cells 0-5 SEEN /hpf (0-5)
[2022-07-27] MEDS: MethylPREDNISolone 125 MG/2 ML Vial 60 MG IV (23:37)
[2022-07-27] MEDS: Morphine 2 MG/ML Syringe IV (23:38)
[2022-07-28] LABS: Chlamydia Trachomatis by PCR Negative (Negative); Neisserai gonorrhoeae by PCR Negative (Negative); Probe Check PASS; Sample Adequacy Control PASS; Specimen Processing Control PASS
[2022-07-28 00:37] VITALS: BP 144/74; PULSE 74; RESP 18; O2SAT 95
== END 2022-07-28 00:38 | disposition home or self-care (01) ==
PROVIDERS: Emergency Provider Emergency Medicine; Visit Provider Emergency Medicine
DX: N44.8 Other noninflammatory disorders of the testis (principal); F17.210 Nicotine dependence, cigarettes, uncomplicated; N50.819 Testicular pain, unspecified
CPT/HCPCS: 76870; 81001; 85025; 87491; 87591; 93976; 96374; 96375; 99283; A4216

== ENCOUNTER 2022-10-18 12:06 | Outpatient (REF) | payer SELFPAY ==
[2022-10-18 12:06] VITALS: BP 140/89; PULSE 101; RESP 20; TEMP 36.2; O2SAT 99; BMI 28.4
[2022-10-18 12:15] VITALS: BP 134/82; PULSE 97; RESP 18; O2SAT 98
--- NOTE | 2022-10-18 12:52 | EDS_ITS ---
HPI History of Present Illness Chief Complaint: Shortness of Breath Informant: patient and police/commercial litigation associate Narrative Narrative: 32-year-old male was brought to the emergency department by [employer] deputies. Patient was arrested today. He is not either wanting to tell me what is going on or cannot but he is speaking in a fake hoarse voice. He states that his right upper quadrant of his abdomen hurts. 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 He does not take anything for this however. He states when he gets angioedema its in his abdomen. There was concern by skilled nursing staff that the patient was holding his breath. His vital signs are stable. He is not vomiting or having diarrhea. [facility] Medical History ADHD Angio-edema Anxiety HTN (hypertension) Stomach ulcer Home Medications alprazolam 1 mg tablet 1 mg PO BID PRN PRN Anxiety 07/28/19 [History Last Taken Unknown] dextroamphetamine-amphetamine ER 20 mg 24hr capsule,extend release 20 mg PO DAILY 07/28/19 [History Last Taken Unknown] azithromycin 500 mg tablet 500 mg PO DAILY 7 days #7 tabs 12/24/21 [Rx Last Taken Unknown] famotidine 20 mg tablet (Pepcid) 20 mg PO BID #20 tabs 12/24/21 [Rx Last Taken Unknown] hydrocodone-acetaminophen 5-325mg 5mg-325mg 1 tab PO Q8H PRN pain 3 days #10 tabs 12/24/21 [Rx Last Taken Unknown] metoclopramide HCl 5 mg tablet (Reglan) 5 mg PO DAILY PRN nausea and vomiting #20 tabs 12/24/21 [Rx Last Taken Unknown] ondansetron 4 mg disintegrating tablet 4 mg PO Q6H PRN nausea and vomiting #14 tabs 12/24/21 [Rx Last Taken Unknown] prednisone 20 mg tablet 40 mg PO DAILY #10 tabs 12/24/21 [Rx Last Taken Unknown] prednisone 20 mg tablet 60 mg PO DAILY #15 TABLETS 07/28/22 [Rx Last Taken Unknown] tramadol 50 mg tablet 50 mg PO Q4H PRN PRN Pain 2 days #10 tabs 07/28/22 [Rx Last Taken Unknown] Allergy/AdvReac Type Severity Reaction Status Date / Time amoxicillin [From Augmentin] Allergy Hives Verified 07/27/22 21:24 cefprozil [From Cefzil] Allergy Hives Verified 07/27/22 21:24 clavulanic acid Allergy Hives Verified 07/27/22 21:24 [From Augmentin] NSAIDS (Non-Steroidal AdvReac Other Verified 07/27/22 21:24 Anti-Inflamma Social History (Updated 10/18/22 @ 12:[address] Gabriele Munoz, DO) Smoking Status: Current every day smoker tobacco type: cigarettes substance use type: does not use ROS ROS ED Constitutional Constitutional ED: Denies chills or weight loss Eyes Eyes: Denies change in vision or diplopia ENT ENT ED: Denies ear pain, rhinorrhea or sore throat Cardiovascular Cardiovascular: Denies chest pain, orthopnea, palpitations or racing heartbeat Respiratory/Chest Respiratory/Chest: Denies cough, dyspnea or orthopnea Gastrointestinal Gastrointestinal: Reports abdominal pain; Denies diarrhea, nausea or vomiting Genitourinary Genitourinary ED: Denies dysuria, hematuria or urinary frequency Musculoskeletal Musculoskeletal: Denies arthralgias or myalgias Integumentary Denies abscess or rash Neurologic Neurologic: Denies headache(s) or weakness Psychiatric Psychiatric: Denies anxiety, depression, suicidal ideation or suicidal thoughts Endocrine Endocrinology: Denies polydipsia, polyphagia or polyuria Allergic/Immunologic Allergic/Immunologic ED: Denies mouth swelling, tongue swelling or urticaria EXAM Physical Exam Const Vital Signs: 10/18/22 12:06 10/18/22 12:15 10/18/22 12:15 Temperature 97.1 F L Temperature Source Temporal Pulse Rate 101 H 97 Respiratory Rate 20 H 18 Respiratory Effort Normal Respiratory Depth Normal Respiratory Pattern Normal Blood Pressure 140/89 H 134/82 H Blood Pressure Mean 106 99 Pulse Ox 99 98 Oxygen Delivery Method Room Air Room Air Room Air Fraction of Inspired Oxygen (FIO2) 98 Positive well nourished and well developed Constitutional Narrative: Patient is sleeping when I walk into the room. I have to wake him. Once I start to wake him he starts moaning. His voice sounds hoarse but it changes depending on what he is saying suggesting to me that he is malingering. General Appearance ED: well developed HEENT Reports normocephalic, head/scalp atraumatic and moist mucous membranes Eyes PERRL and EOMs intact bilaterally Neck no lymphadenopathy, supple and no JVD Resp normal respiratory effort and clear to auscultation bilaterally Cardio regular rate, regular rhythm and no murmurs GI normal to inspection, nondistended, normoactive bowel sounds and non-tender GI Narrative: There is no a nonsurgical abdomen. Palpation: soft Back/Spine no CVA tenderness and normal ROM Extremity normal to inspection General Extremety ED: Negative for edema General Extremity: Negative for edema Neuro oriented x3 and CN's II-XII intact bilaterally Sensorium / Orientation: alert Motor Exam: strength 5/5 throughout Psych mental status grossly normal Mood & Affect: Negative for depressed or tearful Skin no rashes or lesions noted and no wounds MDM MDM MDM Narrative Medical decision making narrative: Patient can have a dose of Decadron. Otherwise he appears hemodynamically stable. Would recommend following up return if worsening or concerns Discharge Plan Triage Chief Complaint: Shortness of Breath ED Provider: Gabriele Munoz Dx/Rx/DC Orders Clinical Impression: Abdominal pain, acute, Malingering Prescriptions: No Action alprazolam 1 MG tablet 1 mg PO BID PRN PRN (Reason: Anxiety) dextroamphetamine-amphetamine 20 MG capsule,extended release 24hr 20 mg PO DAILY Label Comments: TAKE 1 CAPSULE BY MOUTH ONCE DAILY IN THE MORNING azithromycin 500 mg tablet 500 mg PO DAILY 7 Days Qty: 7 0RF metoclopramide HCl [Reglan] 5 mg tablet 5 mg PO DAILY PRN (Reason: nausea and vomiting) Qty: 20 0RF prednisone 20 mg tablet 40 mg PO DAILY Qty: 10 0RF hydrocodone-acetaminophen 5-325 mg tablet 1 tab PO Q8H PRN (Reason: pain) 3 Days Qty: 10 0RF ondansetron 4 mg tablet,disintegrating 4 mg PO Q6H PRN (Reason: nausea and vomiting) Qty: 14 0RF famotidine [Pepcid] 20 mg tablet 20 mg PO BID Qty: 20 0RF prednisone 20 mg tablet 60 mg PO DAILY Qty: 15 0RF tramadol 50 mg tablet 50 mg PO Q4H PRN PRN (Reason: Pain) 2 Days Qty: 10 0RF Primary Care Provider: Care Physician,No Primary Referrals: Friend,Joel, DO [Med Staff - Active Staff] - As Needed (For gastroenterology) Care Physician,No Primary [Primary Care Provider] - Disposition Disposition: Home, Self Care
[2022-10-18 13:01] VITALS: BP 148/80; PULSE 79; O2SAT 100
[2022-10-18] MEDS: dexAMETHasone 10 MG/ML Vial PO.IVFORM (13:01)
== END 2022-10-18 13:21 ==
LOC: EDREF 12:06
PROVIDERS: Visit Provider Emergency Medicine
DX: R10.9 Unspecified abdominal pain (principal); R06.02 Shortness of breath; F17.210 Nicotine dependence, cigarettes, uncomplicated; I10 Essential (primary) hypertension; F41.9 Anxiety disorder, unspecified; F90.9 Attention-deficit hyperactivity disorder, unspecified type

== ENCOUNTER 2023-01-01 17:41 | Emergency (ER) | payer MEDICAID, SELFPAY ==
[2023-01-01 17:42] VITALS: BP 136/96; PULSE 123; RESP 16; TEMP 35.7; O2SAT 97; BMI 29.6
--- NOTE | 2023-01-01 18:01 | US_ITS ---
EXAM: US SCROTUM CLINICAL INDICATION: swelling, pain-bilat TECHNIQUE: Realtime ultrasound of the testicles was performed with grayscale and Color Doppler analysis. This report was created using [employer] report [employer] technology. COMPARISON: 07/27/2022. FINDINGS: RIGHT TESTICLE: Right testis is normal in size and echogenicity measuring 4.5 x 2.8 x 3 cm. Arterial and venous flow are documented. No focal lesion. LEFT TESTICLE: Left testis is normal in size and echogenicity measuring 4.8 x 3 x 3.2 cm. Arterial and venous flow are documented. No focal lesion. EPIDIDYMIDES: Right epididymal head is normal in size and echogenicity measuring 1.1 x 0.7 cm. Normal color flow. Left epididymal head is normal in size and echogenicity measuring 1 x 0.7 cm. Normal color flow. SCROTUM: Markedly thickened scrotal wall with edema. No hydrocele. No varicocele. US/Testicular with Arterial Flow IMPRESSION: 1. Normal testes. No evidence of torsion. 2. Marked wall thickening and edema. Electronically Signed: Carole Sanchez MD at 19:43 EST Reading Location ID and State: [id number] / Tel , Service support ,
--- NOTE | 2023-01-01 18:02 | EDS_ITS ---
HPI History of Present Illness Chief Complaint: Complaint Informant: patient Narrative Narrative: Patient has edema of the scrotum diffusely over the last several hours, it started engulfing his penis and going up into his suprapubic area, so he took 40 mg of prednisone and came here. He denies any other symptoms in his abdomen, throat, tongue, lips, or elsewhere. No dyspnea or wheezing. No lightheadedness or syncope. 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 He sees allergy for that. He states he has had no urinary symptoms or STDs in the recent past. This happened about 2 months ago, and has happened once remotely before. He states he has had duodenal edema/problems with abdominal distention in the past that he also associates with his angioedema issues but that is not the symptom now. [facility] Medical History ADHD Angio-edema Anxiety HTN (hypertension) Stomach ulcer Home Medications alprazolam 1 mg tablet 1 mg PO BID PRN PRN Anxiety 07/28/19 [History Last Taken Unknown] dextroamphetamine-amphetamine ER 20 mg 24hr capsule,extend release 20 mg PO DAILY 07/28/19 [History Last Taken Unknown] azithromycin 500 mg tablet 500 mg PO DAILY 7 days #7 tabs 12/24/21 [Rx Last Taken Unknown] famotidine 20 mg tablet (Pepcid) 20 mg PO BID #20 tabs 12/24/21 [Rx Last Taken Unknown] hydrocodone-acetaminophen 5-325mg 5mg-325mg 1 tab PO Q8H PRN pain 3 days #10 tabs 12/24/21 [Rx Last Taken Unknown] metoclopramide HCl 5 mg tablet (Reglan) 5 mg PO DAILY PRN nausea and vomiting #20 tabs 12/24/21 [Rx Last Taken Unknown] ondansetron 4 mg disintegrating tablet 4 mg PO Q6H PRN nausea and vomiting #14 tabs 12/24/21 [Rx Last Taken Unknown] prednisone 20 mg tablet 40 mg PO DAILY #10 tabs 12/24/21 [Rx Last Taken Unknown] prednisone 20 mg tablet 60 mg PO DAILY #15 TABLETS 07/28/22 [Rx Last Taken Unknown] tramadol 50 mg tablet 50 mg PO Q4H PRN PRN Pain 2 days #10 tabs 07/28/22 [Rx Last Taken Unknown] prednisone 10 mg tablet 10 mg PO UD #33 tabs 01/01/23 [Rx Last Taken Unknown] Allergy/AdvReac Type Severity Reaction Status Date / Time amoxicillin [From Augmentin] Allergy Hives Verified 07/27/22 21:24 cefprozil [From Cefzil] Allergy Hives Verified 07/27/22 21:24 clavulanic acid Allergy Hives Verified 07/27/22 21:24 [From Augmentin] NSAIDS (Non-Steroidal AdvReac Other Verified 07/27/22 21:24 Anti-Inflamma Social History Smoking Status: Current every day smoker tobacco type: cigarettes substance use type: does not use ROS ROS ED Constitutional Constitutional ED: Denies chills or fever(s) Eyes Eyes: Denies change in vision or diplopia ENT ENT ED: Denies rhinorrhea or sore throat Cardiovascular Cardiovascular: Denies chest pain or palpitations Respiratory/Chest Respiratory/Chest: Denies cough or dyspnea Gastrointestinal Gastrointestinal: Denies abdominal pain, diarrhea, nausea or vomiting Genitourinary Genitourinary ED: Reports as per HPI and scrotal swelling; Denies dysuria or hematuria Musculoskeletal Musculoskeletal: Denies back pain or neck pain Integumentary Denies abscess or rash Neurologic Neurologic: Denies headache(s), paresthesias or weakness Psychiatric Psychiatric: Denies anxiety or suicidal thoughts EXAM Physical Exam Const Vital Signs: 01/01/23 17:42 Temperature 96.3 F L Temperature Source Temporal Pulse Rate 123 H Respiratory Rate 16 Blood Pressure 136/96 H Blood Pressure Mean 109 Pulse Ox 97 Oxygen Delivery Method Room Air Positive well nourished and well developed General Appearance ED: well developed and NAD HEENT Reports moist mucous membranes normocephalic and atraumatic Eyes PERRL and EOMs intact bilaterally Neck full ROM and supple Resp normal respiratory effort and clear to auscultation bilaterally Cardio regular rate, regular rhythm and no murmurs GI non-tender and non-distended Auscultation: normoactive bowel sounds Palpation: soft Narrative: Diffuse scrotal edema, the penis is exposed and he is able to urinate. The edema does go up to the lower abdomen wall wall. There is no erythema or significant tenderness, but I am not able to feel the testicles because of the significant edema of the scrotum. There is no perineum tenderness, erythema, subcutaneous emphysema. Back/Spine no CVA tenderness General Back: other FROM Extremity normal to inspection General Extremety ED: Negative for edema, pulses abnormal or tenderness General Extremity: Negative for edema or pulses abnormal Neuro oriented x3, CN's II-XII intact bilaterally and no sensory deficits noted Sensorium / Orientation: awake and alert Motor Exam: strength 5/5 throughout Psych Mood & Affect: anxious Skin no rashes or lesions noted and no wounds MDM MDM MDM Narrative Medical decision making narrative: Ultrasound of the scrotum was obtained. Images appear unremarkable with regards of testicles, scrotal edema. Radiology is in agreement. My interpretation of the US agrees with that of the radiologist. Patient was given Solu-Medrol at his request, but I give him a half dose because he already took prednisone 40 mg today. Scrotal edema is still there after several hours of observation, he states it is no worse may be better maybe not. He does not have any other symptoms or signs of edema anywhere else. I do not think this is infectious. We will prescribe him prednisone which he states is helped in the past, and have him follow-up with his inside tester. Radiography Diagnostic Testing: Clinical Impression(s) from Imaging Studies Testicular Ultrasound 01/01/23 18:01 IMPRESSION: 1. Normal testes. No evidence of torsion. 2. Marked wall thickening and edema. 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 No Action alprazolam 1 MG tablet 1 mg PO BID PRN PRN (Reason: Anxiety) dextroamphetamine-amphetamine 20 MG capsule,extended release 24hr 20 mg PO DAILY Label Comments: TAKE 1 CAPSULE BY MOUTH ONCE DAILY IN THE MORNING azithromycin 500 mg tablet 500 mg PO DAILY 7 Days Qty: 7 0RF metoclopramide HCl [Reglan] 5 mg tablet 5 mg PO DAILY PRN (Reason: nausea and vomiting) Qty: 20 0RF prednisone 20 mg tablet 40 mg PO DAILY Qty: 10 0RF hydrocodone-acetaminophen 5-325 mg tablet 1 tab PO Q8H PRN (Reason: pain) 3 Days Qty: 10 0RF ondansetron 4 mg tablet,disintegrating 4 mg PO Q6H PRN (Reason: nausea and vomiting) Qty: 14 0RF famotidine [Pepcid] 20 mg tablet 20 mg PO BID Qty: 20 0RF prednisone 20 mg tablet 60 mg PO DAILY Qty: 15 0RF tramadol 50 mg tablet 50 mg PO Q4H PRN PRN (Reason: Pain) 2 Days Qty: 10 0RF Primary Care Provider: Care Physician,No Primary Referrals: inside tester, your [Other] - 3-5 Days if not improving Care Physician,No Primary [Primary Care Provider] - Disposition Disposition: Home, Self Care
[2023-01-01] MEDS: traMADol 50 MG Tablet PO (18:14)
[2023-01-01] MEDS: MethylPREDNISolone 125 MG/2 ML Vial 62.5 MG IV (18:14)
== END 2023-01-01 21:27 | disposition home or self-care (01) ==
PROVIDERS: Emergency Provider Emergency Medicine; Visit Provider Emergency Medicine
DX: N49.2 Inflammatory disorders of scrotum (principal); D84.1 Defects in the complement system; I10 Essential (primary) hypertension; F17.210 Nicotine dependence, cigarettes, uncomplicated; Z79.899 Other long term (current) drug therapy
CPT/HCPCS: 76870; 93976; 96374; 99282; A4216

== ENCOUNTER 2023-03-23 03:42 | Emergency (ER) | payer MEDICAID, SELFPAY ==
[2023-03-23 03:43] VITALS: BP 174/108; PULSE 78; RESP 18; TEMP 36; O2SAT 99; BMI 30.6
--- NOTE | 2023-03-23 04:20 | ED.VIS.GI ---
HPI HPI - GI History of Present Illness Chief Complaint: Nausea/Vomiting Informant: patient Abdominal Pain/Flank Pain Onset: Days Context: Gradual Onset Timing: Intermittent Quality: Aching Location: Diffuse Current Severity: Mild Maximum Severity: Mild Worsened by: Nothing Relieved by: Nothing Nausea/Vomiting/Emesis GI Symptom: Positive for Nausea and Vomiting Onset: Days Quality: Positive for Nonbilious Severity: Moderate Diarrhea/Melena/Hematochezia GI Symptom: Positive for Diarrhea; Negative for Melena or Hematochezia Onset: Days Stool Quality: Positive for Loose Severity: Mild Associated Symptoms Associated Symptoms: Negative for Dysuria, Frequency or Hematuria Narrative Narrative: 33-year-old male has a history of hereditary angioedema and gastritis. He has had multiple episodes like this in the past where he gets inflammation of his GI tract and has nausea, vomiting and diarrhea. This episodes been going on the last 5 to 7 days. No fever. He initially started with loose diarrhea with nausea and vomiting the diarrhea has resolved but he still having intermittent nausea and vomiting. Diffuse abdominal discomfort which is similar to prior episodes. He has never had any abdominal surgery. He has had both upper and lower endoscopies before in the past. Prior similar symptoms: Yes Recent Illness/Hospitalization: No PFSH COUNT INCLUDES THE [facility] Medical History ADHD Angio-edema Anxiety HTN (hypertension) Stomach ulcer Home Medications alprazolam 1 mg tablet 1 mg PO BID PRN PRN Anxiety 07/28/19 [History Last Taken Unknown] dextroamphetamine-amphetamine ER 20 mg 24hr capsule,extend release 20 mg PO DAILY 07/28/19 [History Last Taken Unknown] azithromycin 500 mg tablet 500 mg PO DAILY 7 days #7 tabs 12/24/21 [Rx Last Taken Unknown] famotidine 20 mg tablet (Pepcid) 20 mg PO BID #20 tabs 12/24/21 [Rx Last Taken Unknown] hydrocodone-acetaminophen 5-325mg 5mg-325mg 1 tab PO Q8H PRN pain 3 days #10 tabs 12/24/21 [Rx Last Taken Unknown] metoclopramide HCl 5 mg tablet (Reglan) 5 mg PO DAILY PRN nausea and vomiting #20 tabs 12/24/21 [Rx Last Taken Unknown] ondansetron 4 mg disintegrating tablet 4 mg PO Q6H PRN nausea and vomiting #14 tabs 12/24/21 [Rx Last Taken Unknown] prednisone 20 mg tablet 40 mg PO DAILY #10 tabs 12/24/21 [Rx Last Taken Unknown] prednisone 20 mg tablet 60 mg PO DAILY #15 TABLETS 07/28/22 [Rx Last Taken Unknown] tramadol 50 mg tablet 50 mg PO Q4H PRN PRN Pain 2 days #10 tabs 07/28/22 [Rx Last Taken Unknown] prednisone 10 mg tablet 10 mg PO UD #33 tabs 01/01/23 [Rx Last Taken Unknown] ondansetron 4 mg disintegrating tablet 4 mg PO Q6H PRN nausea and vomiting #7 tabs 03/23/23 [Rx Last Taken Unknown] prednisone 20 mg tablet 40 mg PO DAILY 2 days #4 tabs 03/23/23 [Rx Last Taken Unknown] Allergy/AdvReac Type Severity Reaction Status Date / Time amoxicillin [From Augmentin] Allergy Hives Verified 03/23/23 03:46 cefprozil [From Cefzil] Allergy Hives Verified 03/23/23 03:46 clavulanic acid Allergy Hives Verified 03/23/23 03:46 [From Augmentin] NSAIDS (Non-Steroidal AdvReac Other Verified 03/23/23 03:46 Anti-Inflamma Social History Smoking Status: Current every day smoker tobacco type: cigarettes substance use type: does not use ROS ROS ED ROS Narrative Abdominal pain. Nausea, vomiting and diarrhea. Review of Systems ROS Unobtainable: Denies due to encephalopathy Constitutional Constitutional ED: Denies chills or fever(s) ENT ENT ED: Denies ear pain Cardiovascular Cardiovascular: Denies chest pain Respiratory/Chest Respiratory/Chest: Denies cough or dyspnea Gastrointestinal Gastrointestinal: Reports abdominal pain, diarrhea, nausea and vomiting; Denies constipation or melena Genitourinary Genitourinary ED: Denies dysuria or hematuria Musculoskeletal Musculoskeletal: Denies arthralgias Integumentary Denies abscess Neurologic Neurologic: Denies headache(s) Psychiatric Psychiatric: Denies anxiety Endocrine Endocrinology: Denies polydipsia Hematologic/Lymphatic Hematologic/Lymphatic: Denies easy bleeding Allergic/Immunologic Allergic/Immunologic ED: Denies mouth swelling or tongue swelling EXAM Physical Exam Narrative Exam Narrative: 33-year-old male vital signs are stable. He is afebrile. He does not look septic or toxic. He does look dehydrated. H EENT exam dry mucous membranes. Neck nontender no lymphadenopathy. Lungs clear to auscultation bilaterally. Heart regular rhythm rate about 80 no murmur. Abdomen soft. Diffusely tender. Nondistended. No peritoneal signs. Normal bowel sounds. No hernia or mass. No localizing right upper or right lower quadrant tenderness. No signs of obstruction. Moving all 4 extremities. Back nontender. Skin no rashes. He is awake and alert. No focal motor deficits. Const Vital Signs: 03/23/23 03:43 03/23/23 06:52 Temperature 96.8 F L Temperature Source Temporal Pulse Rate 78 77 Respiratory Rate 18 17 Blood Pressure 174/108 H 136/88 H Blood Pressure Mean 130 104 Pulse Ox 99 98 Oxygen Delivery Method Room Air Room Air Positive well nourished and well developed; Negative for cachectic, contractures or unkempt General Appearance ED: well developed and NAD; Negative for unkempt, cachectic, contractures or pallor Nutritional Appearance: Negative for cachectic HEENT Reports dry mucous membranes; Denies moist mucous membranes normocephalic and atraumatic; Negative for trauma or tenderness Mouth ED: Yes dry mucous membranes Mouth: dry mucous membranes Eyes PERRL and EOMs intact bilaterally General Eye ED: Negative for pale conjunctiva or scleral icterus Neck no lymphadenopathy, supple and no JVD General: Negative for tenderness Carotids: Negative for other Lymph Lymphatic: Negative for other Resp normal respiratory effort and clear to auscultation bilaterally Effort and Inspection: Negative for respiratory distress Auscultation: Negative for rales, rhonchi or wheezes Cardio regular rate, regular rhythm, S1 normal heart sound, S2 normal heart sound and no murmurs Rate: Negative for bradycardia or tachycardic Rhythm: Negative for abnormal rhythm GI non-distended and no masses; Negative for non-tender Inspection: Negative for abdominal distention Auscultation: normoactive bowel sounds Palpation: soft and tender; Negative for guarding, rigid, hepatomegaly, splenomegaly, hernia, mass, pulsatile mass or rebound tenderness present Back/Spine no CVA tenderness General Back: Negative for CVA tenderness Cervical Spine: Negative for cervical spine tenderness Thoracic Spine / Upper Back: Negative for thoracic spinal tenderness Lumbar Spine / Lower Back: Negative for lumbar spinal tenderness Coccyx: Negative for other Extremity full ROM General Extremety ED: Negative for edema or tenderness General Extremity: Negative for edema Neuro CN's II-XII intact bilaterally and moves all extremities Sensorium / Orientation: alert, oriented to person, oriented to place and oriented to time; Negative for orientation impaired, confused, lethargic or stuporous Motor Exam: strength 5/5 throughout Psych mental status grossly normal and thought process normal Appearance: Negative for unkempt Attitude: No agitated Mood & Affect: Negative for depressed, anxious or tearful Skin no wounds General Skin Exam: Negative for jaundice or pallor Lesions: no lesions Rashes: no rashes Trauma: Negative for abrasion Nails: Negative for discolored MDM MDM MDM Narrative Medical decision making narrative: 33-year-old with history of [place] erotic edema with multiple prior episodes like this where he gets nausea vomiting diarrhea and gets dehydrated. To be treated with IV fluids. IV Zofran for nausea. Screening labs will be obtained. He has had imaging in the past which I do not think needs at this time. Will be given IV Solu-Medrol and 2 L normal saline. Repeat exam at 7:30 AM patient doing well feels much better. Abdomen soft. No peritoneal signs. Nausea resolved. He is feeling and looking much better. He is comfortable being discharged home. I do not think he needs any imaging of his abdomen at this time. He will be placed on Zofran at home for nausea and 2 days of prednisone which they have done in the past for his inflammation. History & Record Review Discussion w/independent historian: Patient Lab Data Attestation: I reviewed the patient's lab results. Lab results narrative: CBC shows a white count of 15.4. H&H is 16 and 49. Platelets 571. Electrolytes show a gap at 9. Normal BUN and creatinine. Liver enzymes are slightly elevated with elevated AST, ALT and alk phos. Glucose 120. Lipase normal at 19. Labs are consistent with once he has had in the past with similar episodes. He has had elevated white counts before. Labs: Laboratory Results - last 24 hr 03/23/23 03/23/23 04:42 04:42 WBC 15.4 H RBC 5.55 Hgb 16.6 H Hct 49.1 MCV 88.5 MCH 29.9 MCHC 33.8 RDW Std Deviation 41.7 RDW Coeff of Faustina 12.7 Plt Count 571 H MPV 9.3 Immature Gran % (Auto) 0.400 Neut % (Auto) 85.6 H Lymph % (Auto) 9.2 L [place] % (Auto) 4.5 Eos % (Auto) 0.0 Baso % (Auto) 0.3 Absolute Neuts (auto) 13.2 H Absolute Lymphs (auto) 1.42 Nucleated RBC % 0 Sodium 138 Potassium 4.1 Chloride 103 Carbon Dioxide 26.0 Anion Gap 9 BUN 15 Creatinine 0.74 Estim Creat Clear Calc 180.61 Est GFR (MDRD) Af Amer 158 Est GFR (MDRD) Non-Af 131 BUN/Creatinine Ratio 20.4 H Glucose 120 H Calcium 9.6 Total Bilirubin 0.40 AST 41 H ALT 67 H Alkaline Phosphatase 120 H Total Protein 7.9 Albumin 3.8 Globulin 4.1 Albumin/Globulin Ratio 0.9 Lipase 19 Discharge Plan Triage Chief Complaint: Nausea/Vomiting ED Provider: Jd Patrick Dx/Rx/DC Orders Clinical Impression: Abdominal pain, acute, 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), Nausea & vomiting Instructions: ED Angioedema, ED Vomiting (Adult) Prescriptions: New ondansetron 4 mg tablet,disintegrating 4 mg PO Q6H PRN (Reason: nausea and vomiting) Qty: 7 0RF prednisone 20 mg tablet 40 mg PO DAILY 2 Days Qty: 4 0RF No Action alprazolam 1 MG tablet 1 mg PO BID PRN PRN (Reason: Anxiety) dextroamphetamine-amphetamine 20 MG capsule,extended release 24hr 20 mg PO DAILY Label Comments: TAKE 1 CAPSULE BY MOUTH ONCE DAILY IN THE MORNING azithromycin 500 mg tablet 500 mg PO DAILY 7 Days Qty: 7 0RF metoclopramide HCl [Reglan] 5 mg tablet 5 mg PO DAILY PRN (Reason: nausea and vomiting) Qty: 20 0RF prednisone 20 mg tablet 40 mg PO DAILY Qty: 10 0RF hydrocodone-acetaminophen 5-325 mg tablet 1 tab PO Q8H PRN (Reason: pain) 3 Days Qty: 10 0RF ondansetron 4 mg tablet,disintegrating 4 mg PO Q6H PRN (Reason: nausea and vomiting) Qty: 14 0RF famotidine [Pepcid] 20 mg tablet 20 mg PO BID Qty: 20 0RF prednisone 20 mg tablet 60 mg PO DAILY Qty: 15 0RF tramadol 50 mg tablet 50 mg PO Q4H PRN PRN (Reason: Pain) 2 Days Qty: 10 0RF prednisone 10 mg tablet 10 mg PO UD Qty: 33 0RF Rx Instructions: Take 4 tablets daily for 3 days, then 3 daily for 3 days, then 2 daily for 3 days, then 1 a day for 3 days then 1 QOD for 3 doses. Primary Care Provider: Care Physician,No Primary Referrals: Jonathon Gupta MD [Med Staff - Demolition Expert] - As Needed Care Physician,No Primary [Primary Care Provider] - Activity Restrictions/Additional Instructions: Plenty of fluids and rest. Increase your diet slowly as tolerated. Zofran as needed for nausea. Prednisone 40 mg a day for the next 2 days starting on Thursday. You received IV Solu-Medrol here today. Follow-up with your doctor as needed return if worse. Disposition Disposition: Home, Self Care
[2023-03-23] MEDS: Ondansetron 4 MG/2 ML Vial IV (04:40)
[2023-03-23] MEDS: MethylPREDNISolone 125 MG/2 ML Vial IV (04:42)
[2023-03-23] MEDS: morphine 8 MG/ML Syringe IV (04:43)
[2023-03-23] MEDS: 0.9% Normal Saline 1,000 ML 2000 ML IV (04:44)
[2023-03-23 04:51] LABS: Absolute Lymphocyte Count 1.42 X10^3/uL (0.83-4.51); Absolute Neutrophil Count 13.2 X10^3/uL (2.0-7.7); Basophil# 0.04 X10^3/uL; Basophil% 0.3 % (0-1); Hematocrit 49.1 % (40-54); Hemoglobin 16.6 g/dL (13.0-16.5); Lymphocyte # 1.42 X10^3/ul (0.83-4.51); Lymphocyte % 9.2 % (19-41); Mean Corp Hgb Conc 33.8 g/dL (32-36); Mean Corpuscular Hgb 29.9 pg (27.0-32.0); Mean Corpuscular Volume 88.5 fL (80-94); Mean Platelet Vol. 9.3 fl (6.2-12.0); Monocyte# 0.69 X10^3/uL; Monocyte% 4.5 % (0-10); NRBC Flagged by Analyzer 0 % (0-5); Neutrophil # 13.17 X10^3/uL (2.7-7.7); Neutrophil % 85.6 % (47-70); Platelet Count 571 K/mm3 (150-450); RBC Distribution Width CV 12.7 % (11.6-14.6); RBC Distribution Width SD 41.7 fl (35.1-43.9); Red Blood Count 5.55 M/mm3 (4.6-6.2); White Blood Count 15.4 K/mm3 (4.4-11.0)
[2023-03-23 05:08] LABS: ALB/GLOB Ratio 0.9 RATIO (0.9-2.4); AST(SGOT) 41 U/L (15-37); Alanine Aminotransfer ALT/SGPT 67 U/L (16-61); Albumin, Serum 3.8 g/dL (3.2-5.0); Alkaline Phosphatase 120 U/L (45-117); Anion Gap 9 (5-15); BUN 15 mg/dL (7-18); BUN/Creat Ratio 20.4 RATIO (10-20); Calcium,Total 9.6 mg/dL (8.5-10.1); Chloride 103 mmol/L (98-107); Creatinine, Serum 0.74 mg/dL (0.70-1.30); EST Glomerular Filtration Rate 131 mL/min (>60); Est Glom Filt Rate - Afr Amer 158 mL/min (>60); Estimated Creatinine Clearance 180.61 ml/min; Globulin 4.1 g/dL (2.2-4.2); Glucose 120 mg/dL (74-106); Lipase 19 U/L (13-75); Potassium 4.1 mmol/L (3.5-5.1); Protein, Total 7.9 g/dL (6.4-8.2); Sodium Level 138 mmol/L (136-145)
[2023-03-23 06:52] VITALS: BP 136/88; PULSE 77; RESP 17; O2SAT 98
[2023-03-23 08:39] VITALS: BP 130/74; PULSE 82; RESP 16; O2SAT 97
== END 2023-03-23 08:41 | disposition home or self-care (01) ==
PROVIDERS: Emergency Provider Emergency Medicine; Visit Provider Emergency Medicine
DX: R10.9 Unspecified abdominal pain (principal); T78.3XXA Angioneurotic edema, initial encounter; R11.2 Nausea with vomiting, unspecified; F17.210 Nicotine dependence, cigarettes, uncomplicated; X58.XXXA Exposure to other specified factors, initial encounter
CPT/HCPCS: 80053; 83690; 85025; 96361; 96374; 96375; 99284; J7030; A4216; J2405

== ENCOUNTER 2024-03-07 00:47 | Emergency (ER) | payer MEDICAID, SELFPAY ==
[2024-03-07 00:47] VITALS: BP 144/86; PULSE 105; RESP 16; TEMP 37.1; O2SAT 94
[2024-03-07 00:52] VITALS: O2SAT 95
--- NOTE | 2024-03-07 01:31 | RAD_ITS ---
STUDY: X-RAY CHEST REASON FOR EXAM: Male, 33 years old patient with cough. TECHNIQUE: PA and lateral views of the chest. COMPARISON: None. FINDINGS: There is heterogeneous left lower lobe airspace consolidation suggesting pneumonia. There is no demonstrated pleural abnormality. Normal size heart. Normal mediastinum and zi. Normal visualized pulmonary arteries. Normal visualized aortic arch and descending thoracic aorta. Normal visualized thoracic spine. Normal visualized ribs, clavicles, and shoulders. There is no demonstrated abnormality of the visualized soft tissue structures of the upper abdomen. RAD/Chest PA and Lateral IMPRESSION: Left lower lobe airspace disease suggests pneumonia. Electronically Signed: Flor Staton MD at 2:38 EDT ,
[2024-03-07 01:54] LABS: Absolute Lymphocyte Count 2.06 X10^3/uL (0.83-4.51); Absolute Neutrophil Count 10.8 X10^3/uL (2.0-7.7); Basophil# 0.12 X10^3/uL; Basophil% 0.8 % (0-1); Eosinophils% 1.4 % (0-5); Hematocrit 37.4 % (40-54); Hemoglobin 12.5 g/dL (13.0-16.5); Lymphocyte # 2.06 X10^3/ul (0.83-4.51); Mean Corp Hgb Conc 33.4 g/dL (32-36); Mean Corpuscular Hgb 28.7 pg (27.0-32.0); Mean Platelet Vol. 9.4 fl (6.2-12.0); Monocyte# 1.52 X10^3/uL; Monocyte% 10.3 % (0-10); NRBC Flagged by Analyzer 0 % (0-5); Neutrophil # 10.78 X10^3/uL (2.7-7.7); Neutrophil % 73.2 % (47-70); POSITIVE DIFFERENTIAL YES; Platelet Count 469 K/mm3 (150-450); RBC Distribution Width CV 12.6 % (11.6-14.6); RBC Distribution Width SD 39.7 fl (35.1-43.9); Red Blood Count 4.35 M/mm3 (4.6-6.2); White Blood Count 14.7 K/mm3 (4.4-11.0)
[2024-03-07 01:55] LABS: Differential Indicated SCAN CRITERIA MET
[2024-03-07 01:57] LABS: Differential Comment SCANNED
[2024-03-07] MEDS: Ondansetron 4 MG/2 ML Vial IV (02:30)
[2024-03-07] MEDS: 0.9% Normal Saline (1000mL) 1,000 ML 999 ML IV (02:30)
[2024-03-07 02:32] VITALS: BP 126/74; PULSE 90; RESP 16; TEMP 36.6; O2SAT 98
[2024-03-07 02:43] LABS: Anion Gap 8 (5-15); BUN 12 mg/dL (7-18); BUN/Creat Ratio 14.8 RATIO (10-20); Calcium,Total 8.6 mg/dL (8.5-10.1); Chloride 101 mmol/L (98-107); Creatinine, Serum 0.81 mg/dL (0.70-1.30); EST Glomerular Filtration Rate 117 mL/min (>60); Est Glom Filt Rate - Afr Amer 141 mL/min (>60); Estimated Creatinine Clearance 184.11 ml/min; Glucose 115 mg/dL (74-106); Magnesium 2.2 mg/dL (1.6-2.6); Potassium 3.5 mmol/L (3.5-5.1); Sodium Level 134 mmol/L (136-145)
--- NOTE | 2024-03-07 03:15 | EDS_ITS ---
HPI History of Present Illness Chief Complaint: Cough Informant: patient Narrative Narrative: Patient is a 33-year-old male with past medical history of hereditary angioedema. He states that multiple members of his household have been sick. He reports in the last 1 to 2 days he has had congestion and cough and shortness of breath as well as bouts of nausea. He states he is also had subjective fevers. He reports he has had difficulty keeping food or fluid down and has concern for dehydration as well and therefore with his persistent and worsening symptoms comes in for evaluation [facility] Medical History ADHD Angio-edema Anxiety HTN (hypertension) Stomach ulcer Home Medications alprazolam 1 mg tablet 1 mg PO BID PRN PRN Anxiety 07/28/19 [History Last Taken Unknown] dextroamphetamine-amphetamine ER 20 mg 24hr capsule,extend release 20 mg PO DAILY 07/28/19 [History Last Taken Unknown] azithromycin 500 mg tablet 500 mg PO DAILY 7 days #7 tabs 12/24/21 [Rx Last Taken Unknown] famotidine 20 mg tablet (Pepcid) 20 mg PO BID #20 tabs 12/24/21 [Rx Last Taken Unknown] hydrocodone-acetaminophen 5-325mg 5mg-325mg 1 tab PO Q8H PRN pain 3 days #10 tabs 12/24/21 [Rx Last Taken Unknown] doxycycline hyclate 100 mg capsule 100 mg PO BID 10 days #20 caps 03/07/24 [Rx Last Taken Unknown] hydrocodone-homatropine 5 mg-1.5 mg/5 mL (5 mL) oral syrup (Hycodan) 5 ml PO 4X/DAY PRN cough 7 days #140 mL 03/07/24 [Rx Last Taken Unknown] ondansetron 4 mg disintegrating tablet 4 mg PO TID PRN nausea and vomiting #21 tabs 03/07/24 [Rx Last Taken Unknown] risperidone 0.5 mg tablet PO 03/07/24 [History Last Taken Unknown] Allergy/AdvReac Type Severity Reaction Status Date / Time amoxicillin [From Augmentin] Allergy Hives Verified 03/23/23 03:46 cefprozil [From Cefzil] Allergy Hives Verified 03/23/23 03:46 clavulanic acid Allergy Hives Verified 03/23/23 03:46 [From Augmentin] NSAIDS (Non-Steroidal AdvReac Other Verified 03/23/23 03:46 Anti-Inflamma Social History Smoking Status: Current every day smoker tobacco type: cigarettes substance use type: does not use ROS ROS ED Constitutional Constitutional ED: Reports chills, fever(s) and subjective Eyes Eyes: Denies change in vision ENT ENT ED: Reports rhinorrhea and sore throat Cardiovascular Cardiovascular: Denies chest pain Respiratory/Chest Respiratory/Chest: Reports cough; Denies dyspnea Gastrointestinal Gastrointestinal: Reports abdominal pain and nausea; Denies diarrhea or vomiting Genitourinary Genitourinary ED: Denies dysuria Musculoskeletal Musculoskeletal: Reports myalgias Integumentary Denies rash Neurologic Neurologic: Denies headache(s) Hematologic/Lymphatic Hematologic/Lymphatic: Denies easy bleeding or easy bruising EXAM Physical Exam Const Vital Signs: 03/07/24 00:47 03/07/24 00:52 03/07/24 02:32 Temperature 98.8 F 98 F Temperature Source Oral Oral Pulse Rate 105 H 90 Respiratory Rate 16 16 Respiratory Effort Normal Non-Labored Respiratory Depth Normal Respiratory Pattern Normal Blood Pressure 144/86 H 126/74 H Blood Pressure Mean 105 91 Pulse Ox 94 98 Oxygen Delivery Method Room Air Room Air Room Air Positive well nourished and well developed General Appearance ED: well developed; Negative for pallor HEENT HEENT Narrative: Bilateral TMs are retracted but show no secondary changes to suggest infection Nasal mucosa is hyperemic and boggy with enlarged inferior nasal turbinates There is cobblestoning the posterior pharynx consistent with sinus drainage without airway edema or compromise No signs of infection in the posterior pharynx but mucous membranes are slightly dry and tacky Eyes PERRL and EOMs intact bilaterally General Eye ED: Negative for scleral icterus Neck supple Neck Narrative: No nuchal rigidity or meningeal signs Resp normal respiratory effort Resp Narrative: Breath sounds are diminished throughout with faint rhonchi in the bilateral lower lobes but no nasal flaring retractions tachypnea or accessory muscle use Cardio regular rate and regular rhythm GI non-distended and no masses GI Narrative: Abdomen is soft and nondistended with hyperactive bowel sounds. There is pain with palpation diffusely without voluntary guarding or rigidity or pulsatile mass Auscultation: hyperactive bowel sounds Palpation: soft Back/Spine no CVA tenderness Extremity normal to inspection Extremity Narrative: No asymmetric edema no pitting edema negative Homans' sign bilaterally Neuro oriented x3, CN's II-XII intact bilaterally and no sensory deficits noted Sensorium / Orientation: alert Motor Exam: strength 5/5 throughout Psych mental status grossly normal Skin no rashes or lesions noted and no wounds Skin Narrative: Skin turgor is slightly increased General Skin Exam: Negative for jaundice or pallor MDM MDM MDM Narrative Medical decision making narrative: Patient arrived to the ER with stable vitals and reported a constellation of symptoms most consistent with viral infection. However as patient's had subjective fevers and chills with cough and known sick contacts there is concern for pneumonia as well as potential acute kidney injury and electrolyte abnormality. Patient blood work was obtained which shows elevation to the white count but otherwise no clinically significant findings. Chest x-ray shows changes concerning for pneumonia. At this time the patient is not requiring supplemental oxygen he is not in respiratory distress and he does not have findings concerning for sepsis so there is no need for admission. Can be placed on antibiotics secondary to the chest x-ray read but is otherwise safe for discharge History & Record Review Discussion w/independent historian: Patient Lab Data Attestation: I reviewed the patient's lab results. Labs: Laboratory Results - last 24 hr 03/07/24 01:45 WBC 14.7 H RBC 4.35 L Hgb 12.5 L Hct 37.4 L MCV 86.0 MCH 28.7 MCHC 33.4 RDW Std Deviation 39.7 RDW Coeff of Faustina 12.6 Plt Count 469 H MPV 9.4 Immature Gran % (Auto) 0.300 Neut % (Auto) 73.2 H Lymph % (Auto) 14.0 L [place] % (Auto) 10.3 H Eos % (Auto) 1.4 Baso % (Auto) 0.8 Absolute Neuts (auto) 10.8 H Absolute Lymphs (auto) 2.06 Nucleated RBC % 0 Differential Comment SCANNED Sodium 134 L Potassium 3.5 Chloride 101 Carbon Dioxide 25.0 Anion Gap 8 BUN 12 Creatinine 0.81 Estim Creat Clear Calc 184.11 Est GFR (MDRD) Af Amer 141 Est GFR (MDRD) Non-Af 117 BUN/Creatinine Ratio 14.8 Glucose 115 H Calcium 8.6 Magnesium 2.2 Radiography Diagnostic Testing: Clinical Impression(s) from Imaging Studies Chest X-Ray 03/07/24 01:31 IMPRESSION: Left lower lobe airspace disease suggests pneumonia. Electronically Signed: Flor Staton MD at 2:38 EDT Reading Location ID and State: [address] [place] [address] , Service support , Chest x-ray as interpreted by the emergency medicine physician reveals haziness in the left lower lobe concerning for developing pneumonia Discharge Plan Triage Chief Complaint: Cough ED Provider: Preston Gipson Dx/Rx/DC Orders Clinical Impression: Pneumonia, History of angioedema, Mild dehydration, Nausea Instructions: ED Pneumonia (Adult) Prescriptions: New doxycycline hyclate 100 mg capsule 100 mg PO BID 10 Days Qty: 20 0RF hydrocodone-homatropine [Hycodan] 5-1.5 mg/5 mL (5 mL) syrup 5 ml PO 4X/DAY PRN (Reason: cough) 7 Days Qty: 140 0RF ondansetron 4 mg tablet,disintegrating 4 mg PO TID PRN (Reason: nausea and vomiting) Qty: 21 0RF No Action alprazolam 1 MG tablet 1 mg PO BID PRN PRN (Reason: Anxiety) dextroamphetamine-amphetamine 20 MG capsule,extended release 24hr 20 mg PO DAILY Patient Comments: TAKE 1 CAPSULE BY MOUTH ONCE DAILY IN THE MORNING azithromycin 500 mg tablet 500 mg PO DAILY 7 Days Qty: 7 0RF hydrocodone-acetaminophen 5-325 mg tablet 1 tab PO Q8H PRN (Reason: pain) 3 Days Qty: 10 0RF famotidine [Pepcid] 20 mg tablet 20 mg PO BID Qty: 20 0RF risperidone 0.5 mg tablet PO Primary Care Provider: Care Physician,No Primary Referrals: Tom Layton MD [Med Staff - Active Staff] - Care Physician,No Primary [Primary Care Provider] - Activity Restrictions/Additional Instructions: Your x-ray shows haziness developing in your left lower lung concerning for pneumonia. Based on the multiple sick contacts at home this is most likely viral but as your viral swab for COVID influenza and RSV is negative in ER please take the antibiotic to ensure that this is not bacterial. Return to the ER should you have any further concerns Disposition Disposition: Home, Self Care Discharge Date/Time: 03/07/24 03:36
[2024-03-07] MEDS: Doxycycline 100 MG CAPSULE PO (03:33)
[2024-03-07 03:35] VITALS: BP 140/73; PULSE 89; RESP 16; TEMP 37.2; O2SAT 97
== END 2024-03-07 03:36 | disposition home or self-care (01) ==
PROVIDERS: Emergency Provider Emergency Medicine; Visit Provider Emergency Medicine
DX: J18.9 Pneumonia, unspecified organism (principal); F17.210 Nicotine dependence, cigarettes, uncomplicated; E86.0 Dehydration
CPT/HCPCS: 71046; 80048; 83735; 85025; 87631; 96361; 96374; 99284; J2405

== ENCOUNTER 2024-09-03 20:28 | Emergency (ER) | payer MEDICAID, SELFPAY ==
[2024-09-03 20:28] VITALS: BP 131/108; PULSE 74; RESP 16; TEMP 36.6; O2SAT 98; BMI 29.7
--- NOTE | 2024-09-03 21:08 | ED.VIS.GI ---
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 He states been coughing for 1 week with fevers and chills since yesterday increasing abdominal discomfort swelling with arm swelling. He states these attacks occur similar in the past. Typically treated with steroids other medications with pain. Denies vomiting or diarrhea. Denies urinary symptoms. States difficulty with breathing secondary to swelling sensation. Is brought in by EMS. Prior similar symptoms: Yes PFSH [facility], [facility] Medical History Stomach ulcer HTN (hypertension) Anxiety Angio-edema ADHD Home Medications ?Medication ?Instructions ?Recorded ?Last Taken ?Type alprazolam 1 mg tablet 1 mg PO BID PRN PRN Anxiety 07/28/19 Unknown History dextroamphetamine-amphetamine ER 20 mg PO DAILY 07/28/19 Unknown History 20 mg 24hr capsule,extend release famotidine 20 mg tablet (Pepcid) 20 mg PO BID #20 tabs 12/24/21 Unknown Rx ondansetron 4 mg disintegrating 4 mg PO TID PRN nausea and 03/07/24 Unknown Rx tablet vomiting #21 tabs acetaminophen 325 mg tablet 975 mg PO Q6H 09/03/24 Unknown History (Aminofen) dextroamphetamine-amphetamine ER 1 cap PO DAILY 09/03/24 Unknown History 30 mg 24hr capsule,extend release dicyclomine 20 mg tablet 20 mg PO TID 09/03/24 Unknown History azithromycin 500 mg tablet 500 mg PO DAILY 7 days #7 tabs 09/04/24 Unknown Rx (Zithromax) famotidine 20 mg tablet 20 mg PO BID #10 TABLETS 09/04/24 Unknown Rx hydrocodone-acetaminophen 5-325mg 1 tab PO Q6H PRN PRN Pain 3 days 09/04/24 Unknown Rx 5mg-325mg #12 TABLETS metoclopramide HCl 5 mg tablet 5 mg PO Q6H PRN nausea and 09/04/24 Unknown Rx (Reglan) vomiting #10 tabs ondansetron 4 mg disintegrating 4 mg PO Q8H PRN PRN Nausea #10 tabs 09/04/24 Unknown Rx tablet prednisone 20 mg tablet 40 mg (2 x 20 mg) PO DAILY #10 10/13/24 Unknown Rx TABLETS Allergy/AdvReac Type Severity Reaction Status Date / Time amoxicillin (From Augmentin) Allergy Hives Verified 09/03/24 20:29 cefprozil (From Cefzil) Allergy Hives Verified 09/03/24 20:29 clavulanic acid (From Allergy Hives Verified 09/03/24 20:29 Augmentin) NSAIDS (Non-Steroidal AdvReac Other Verified 09/03/24 20:29 Anti-Inflamma Social History Smoking Status: Former smoker substance use type: does not use ROS ROS ED Constitutional Constitutional ED: Reports chills and fever(s); Denies sweats Eyes Eyes: Denies change in vision ENT ENT ED: Denies dysphagia or sore throat Cardiovascular Cardiovascular: Denies chest pain, leg edema, palpitations or racing heartbeat Respiratory/Chest Respiratory/Chest: Reports cough; Denies dyspnea or dyspnea on exertion Gastrointestinal Gastrointestinal: Reports abdominal pain; Denies diarrhea, nausea or vomiting Genitourinary Genitourinary ED: Denies dysuria, hematuria or urinary frequency Musculoskeletal Musculoskeletal: Denies back pain, extremity pain or neck pain Integumentary Denies rash or wounds Neurologic Neurologic: Denies headache(s), paresthesias or weakness EXAM Physical Exam Const Vital Signs: 09/03/24 20:28 09/03/24 22:28 09/04/24 00:00 Temperature 98 F Temperature Source Oral Pulse Rate 74 94 80 Respiratory Rate 16 24 H 20 H Blood Pressure 131/108 H 134/87 H 134/88 H Blood Pressure Mean 115 102 103 Pulse Ox 98 94 96 Oxygen Delivery Method Room Air Room Air Room Air Positive well nourished and well developed Constitutional Narrative: Uncomfortable, nontoxic General Appearance ED: well developed HEENT Reports moist mucous membranes HEENT Narrative: No lip or tongue swelling, no stridor. normocephalic and atraumatic Eyes EOMs intact bilaterally and conjunctivae normal General Eye ED: Yes normal appearance of both eyes Neck no lymphadenopathy and supple General: Negative for tenderness Chest Wall Chest: Negative for tenderness Resp normal respiratory effort and normal air movement Effort and Inspection: symmetric chest movement; Negative for respiratory distress Cardio regular rate, regular rhythm and no murmurs Peripheral Pulses: pulses 2+ throughout GI normal to inspection, nondistended, normoactive bowel sounds GI Narrative: Generalized tenderness without guarding or rebound. No abdominal swelling appreciated. Palpation: Negative for guarding or rebound tenderness present Back/Spine no CVA tenderness and no thoracic nor lumbar tenderness Extremity normal to inspection Extremity Narrative: Minimal upper extremity swelling at the wrist and hand. General Extremety ED: Yes edema; Negative for tenderness General Extremity: edema Neuro oriented x3 and no sensory deficits noted Sensorium / Orientation: awake and alert Skin no rashes or lesions noted and no wounds MDM MDM MDM Narrative Medical decision making narrative: Interventions / MDM: Differential diagnosis: Hereditary angioedema, abdominal pain, viral upper respiratory infection Diagnosis considered but do not suspect: Colitis, pneumonia however image studies negative. My EKG interpretation: N/A Imaging independently reviewed and interpreted by myself: 1 view chest x-ray: No acute process. CT scan IV contrast abdomen pelvis: Edema of the jejunum, mild abdominal ascites. External documents reviewed: Multiple ED visits previously treated with Solu-Medrol pain medicines. Previously treated with Ecallantide. Test considered but not ordered:N/A ED course: History does confirm his history of hereditary angioedema. Multiple similar visits. Will check abdominal labs. Chest x-ray. COVID influenza. Morphine Zofran Solu-Medrol started. Will also initiate Ecallantide as this is treatment for hereditary angioedema exacerbations. 2235: Patient appears much more comfortable. Labs white count returned at 22,000, looking at old labs it has been as high as 19,000 in the past. Lipase and liver enzymes normal. 1 view chest x-ray inter by self shows no acute process. COVID influenza, RSV negative. Discussed however with more elevated leukocytosis for further evaluation CT scan abdomen pelvis. Agrees. It was ordered. No abdominal surgeries in the past reports had upper endoscopies in the past. CT scan jejunal edema reported per radiology with enteritis however history of hereditary angioedema. There is no obstruction. Clinically remains improved on reevaluation. Reviewing records similar edema findings were discussed with GI placed on erythromycin and Reglan to help with bowel motility. Patient agrees with the same plan remembers improvement of symptoms. Additionally will continue steroid burst. Antiemetics and pain medicines. I did consider admission however patient clinically was feeling better with no signs of infection. Return precaution discussed with the patient. All questions were answered. Re-evaluation: stable Disposition discussed with patient/family/significant other: Patient Case discussed with consulting clinician: N/A This note was generated with [employer] dictation software. It may contain incorrect words, spelling, and punctuation that were not noted in checking the note before signing. Lab Data Attestation: I reviewed the patient's lab results. Labs: Laboratory Results - last 24 hr 09/03/24 21:42 WBC 22.7 H RBC 6.17 Hgb 17.7 H Hct 53.4 MCV 86.5 MCH 28.7 MCHC 33.1 RDW Std Deviation 39.7 RDW Coeff of Faustina 12.6 Plt Count 605 H MPV 9.4 Immature Gran % (Auto) 0.400 Neut % (Auto) 81.2 H Lymph % (Auto) 13.4 L [place] % (Auto) 4.2 Eos % (Auto) 0.3 Baso % (Auto) 0.5 Absolute Neuts (auto) 18.4 H Absolute Lymphs (auto) 3.05 Nucleated RBC % 0 Sodium 139 Potassium 4.5 Chloride 104 Carbon Dioxide 29.0 Anion Gap 5 BUN 10 Creatinine 0.99 Estim Creat Clear Calc 148.42 Est GFR (MDRD) Af Amer 112 Est GFR (MDRD) Non-Af 92 BUN/Creatinine Ratio 10.1 Glucose 138 H Calcium 9.5 Total Bilirubin 0.30 AST 19 ALT 29 Alkaline Phosphatase 137 H Total Protein 6.8 Albumin 3.3 Globulin 3.5 Albumin/Globulin Ratio 0.9 Lipase 13 Radiography Diagnostic Testing: Clinical Impression(s) from Imaging Studies Chest X-Ray 09/03/24 22:32 IMPRESSION: Normal x-ray examination of the chest. Electronically Signed: Maciel Plata MD at 22:55 EDT Reading Location ID and State: [id number] / [employer] Tel , Service support , Abdomen/Pelvis CT 09/03/24 22:36 IMPRESSION: Severe enteritis of multiple loops of proximal jejunum in the left upper quadrant. Small amount of ascites. Electronically Signed: Maciel Plata MD at 23:39 EDT Reading Location ID and State: [id number] / [employer] Tel , Service support , Discharge Plan Triage Chief Complaint: Abd Pain ED Provider: Varun Martinez Dx/Rx/DC Orders Clinical Impression: 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), Abdominal pain, acute, Upper respiratory infection, viral, Leukocytosis Instructions: Abdominal Pain, Acute Bronchitis, ED Ascites Prescriptions: New hydrocodone-acetaminophen 5-325 mg tablet 1 tab PO Q6H PRN PRN (Reason: Pain) 3 Days Qty: 12 0RF prednisone 20 mg tablet 40 mg PO DAILY Qty: 10 0RF famotidine 20 mg tablet 20 mg PO BID Qty: 10 0RF ondansetron 4 mg tablet,disintegrating 4 mg PO Q8H PRN PRN (Reason: Nausea) Qty: 10 0RF metoclopramide HCl [Reglan] 5 mg tablet 5 mg PO Q6H PRN (Reason: nausea and vomiting) Qty: 10 0RF azithromycin [Zithromax] 500 mg tablet 500 mg PO DAILY 7 Days Qty: 7 0RF No Action alprazolam 1 MG tablet 1 mg PO BID PRN PRN (Reason: Anxiety) dextroamphetamine-amphetamine 20 MG capsule,extended release 24hr 20 mg PO DAILY Patient Comments: TAKE 1 CAPSULE BY MOUTH ONCE DAILY IN THE MORNING famotidine [Pepcid] 20 mg tablet 20 mg PO BID Qty: 20 0RF ondansetron 4 mg tablet,disintegrating 4 mg PO TID PRN (Reason: nausea and vomiting) Qty: 21 0RF dextroamphetamine-amphetamine 30 mg capsule,extended release 24hr 1 cap PO DAILY dicyclomine 20 mg tablet 20 mg PO TID acetaminophen [Aminofen] 325 mg tablet 975 mg PO Q6H Stand Alone Forms: ED Work / School Excuse Primary Care Provider: Care Physician,No Primary Referrals: Friend,Joel, DO [Med Staff - Active Staff] - 1-2 Weeks Care Physician,No Primary [Primary Care Provider] - Activity Restrictions/Additional Instructions: X-ray without any pneumonia. COVID, influenza, RSV negative. Labs white count 22, CT scan notes mild ascites with edema of your jejunum. There is no obstruction. You were given Kalbitor for your hereditary angioedema. Take steroids as prescribed. Chest x-ray is negative. However you were treated with Zithromax antibiotic that helps with infection and bowel movements. Use Reglan as needed. Follow-up with GI as an outpatient. Symptoms recur not improved with medications, return to ED for reevaluation. Print Language: Citizen Of [place] Disposition Disposition: Home, Self Care
[2024-09-03] MEDS: Ondansetron 4 MG/2 ML Vial IV (21:47)
[2024-09-03 21:48] LABS: Absolute Lymphocyte Count 3.05 X10^3/uL (0.83-4.51); Absolute Neutrophil Count 18.4 X10^3/uL (2.0-7.7); Basophil# 0.12 X10^3/uL; Basophil% 0.5 % (0-1); Eosinophil# 0.06 X10^3/uL; Eosinophils% 0.3 % (0-5); Hematocrit 53.4 % (40-54); Hemoglobin 17.7 g/dL (13.0-16.5); Lymphocyte # 3.05 X10^3/ul (0.83-4.51); Lymphocyte % 13.4 % (19-41); Mean Corp Hgb Conc 33.1 g/dL (32-36); Mean Corpuscular Hgb 28.7 pg (27.0-32.0); Mean Corpuscular Volume 86.5 fL (80-94); Mean Platelet Vol. 9.4 fl (6.2-12.0); Monocyte# 0.95 X10^3/uL; Monocyte% 4.2 % (0-10); NRBC Flagged by Analyzer 0 % (0-5); Neutrophil # 18.42 X10^3/uL (2.7-7.7); Neutrophil % 81.2 % (47-70); Platelet Count 605 K/mm3 (150-450); RBC Distribution Width CV 12.6 % (11.6-14.6); RBC Distribution Width SD 39.7 fl (35.1-43.9); Red Blood Count 6.17 M/mm3 (4.6-6.2); White Blood Count 22.7 K/mm3 (4.4-11.0)
[2024-09-03] MEDS: Morphine 4 MG/ML Syringe IV (21:49)
[2024-09-03] MEDS: MethylPREDNISolone 125 MG/2 ML Vial IV (21:52)
[2024-09-03] MEDS: ECALLANTIDE 30 MG SC (21:58)
[2024-09-03 22:04] LABS: ALB/GLOB Ratio 0.9 RATIO (0.9-2.4); AST(SGOT) 19 U/L (15-37); Alanine Aminotransfer ALT/SGPT 29 U/L (16-61); Albumin, Serum 3.3 g/dL (3.2-5.0); Alkaline Phosphatase 137 U/L (45-117); Anion Gap 5 (5-15); BUN 10 mg/dL (7-18); BUN/Creat Ratio 10.1 RATIO (10-20); Calcium,Total 9.5 mg/dL (8.5-10.1); Chloride 104 mmol/L (98-107); Creatinine, Serum 0.99 mg/dL (0.70-1.30); EST Glomerular Filtration Rate 92 mL/min (>60); Est Glom Filt Rate - Afr Amer 112 mL/min (>60); Estimated Creatinine Clearance 148.42 ml/min; Globulin 3.5 g/dL (2.2-4.2); Glucose 138 mg/dL (74-106); Lipase 13 U/L (13-75); Potassium 4.5 mmol/L (3.5-5.1); Protein, Total 6.8 g/dL (6.4-8.2); Sodium Level 139 mmol/L (136-145)
[2024-09-03 22:28] VITALS: BP 134/87; PULSE 94; RESP 24; O2SAT 94
--- NOTE | 2024-09-03 22:32 | RAD_ITS ---
STUDY: X-RAY CHEST REASON FOR EXAM: Male, 34 years old. cough TECHNIQUE: Single AP portable view of the chest. COMPARISON: 03/07/2024 FINDINGS: The lungs are clear and expanded. There is no demonstrated pleural abnormality. Normal size heart. Normal mediastinum and zi. Normal visualized pulmonary arteries. Normal visualized aortic arch and descending thoracic aorta. Normal visualized thoracic spine. Normal visualized ribs, clavicles, and shoulders. There is no demonstrated abnormality of the visualized soft tissue structures of the upper abdomen. RAD/Chest 1 View (Portable) IMPRESSION: Normal x-ray examination of the chest. Electronically Signed: Maciel Plata MD at 22:55 EDT ,
--- NOTE | 2024-09-03 22:36 | CT_ITS ---
STUDY: CT ABDOMEN AND PELVIS WITH CONTRAST REASON FOR EXAM: Male, 34 years old. pain RADIATION DOSAGE (If Supplied By Facility): CTDIvol = ( 16.26 ) mGy, DLP = ( 962.83 ) mGycm TECHNIQUE: Transaxial images were obtained from the dome of the diaphragm to the symphysis pubis without oral contrast. IV 100mL [id number]-[id number] was administered. Sagittal and coronal images were reconstructed. Individualized dose optimization techniques were used for this CT. COMPARISON: None. FINDINGS: The visualized lung bases are unremarkable. The visualized portions of the heart are within normal limits. Normal liver. Normal gallbladder and extrahepatic biliary system. Normal spleen. Normal pancreas. Normal bilateral adrenal glands. Normal right kidney. Normal left kidney. Normal visualized stomach. Severe wall thickening of loops of proximal jejunum in the left upper quadrant consistent with enteritis. Normal colon. The appendix is visualized and appears normal. Normal abdominal aorta. Normal inferior vena cava. Normal retroperitoneum. Normal urinary bladder. Small amount of ascites. Normal abdominal wall. Normal osseous structures. CT/Abdomen/Pelvis W IV Cont ONLY IMPRESSION: Severe enteritis of multiple loops of proximal jejunum in the left upper quadrant. Small amount of ascites. Electronically Signed: Maciel Plata MD at 23:39 EDT ,
[2024-09-04] VITALS: BP 134/88; PULSE 80; RESP 20; O2SAT 96
[2024-09-04 01:05] VITALS: BP 126/89; PULSE 79; RESP 18; TEMP 37.1; O2SAT 98
== END 2024-09-04 01:19 | disposition home or self-care (01) ==
PROVIDERS: Emergency Provider Emergency Medicine; Visit Provider Emergency Medicine
DX: D84.1 Defects in the complement system (principal); J06.9 Acute upper respiratory infection, unspecified; Z87.891 Personal history of nicotine dependence
CPT/HCPCS: 71045; 74177; 80053; 83690; 85025; 87631; 96372; 96374; 96375; 99284; Q9967; A4216; J1290; J2405